=== PATIENT | male | born 1965 | race African-American/Black ===

== ENCOUNTER 2016-12-27 15:29 | Inpatient (IN) | payer OTHER ==
[2016-12-27 20:15] VITALS: BMI 22.5
[2016-12-27] MEDS ORDERED: hydrOXYzine PAMOATE 50 MG CAPSULE (FP) PO PRN (20:53)
[2016-12-27] MEDS ORDERED: MAGNESIUM CITRATE 300 ML BOTTLE PO PRN (20:53)
[2016-12-27] MEDS ORDERED: guaiFENesin/D-METHORPHAN HB 10 ML UNIT-DOSE CUPS PO PRN (20:53)
[2016-12-27] MEDS ORDERED: IBUPROFEN 400 MG TABLET (FP) PO PRN (20:53)
[2016-12-27] MEDS ORDERED: MAG HYDROX/AL HYDROX/SIMETH 30 ML UNIT-DOSE CUP PO PRN (20:53)
[2016-12-27] MEDS ORDERED: LOPERAMIDE HCL 2 MG CAPSULE PO PRN (20:53)
[2016-12-27] MEDS ORDERED: NICOTINE POLACRILEX 2 MG GUM BC PRN (20:53)
[2016-12-27] MEDS ORDERED: chlordiazePOXIDE HCL 25 MG CAPSULE PO ONE (20:53)
[2016-12-27] MEDS ORDERED: MAGNESIUM HYDROX 2400MG/30ML ORAL SUSPENSION 30 ML CUP PO PRN (20:53)
[2016-12-27] MEDS ORDERED: ACETAMINOPHEN 325 MG TABLET (FP) PO PRN (20:53)
[2016-12-27] MEDS ORDERED: P-EPHED 60MG/TRIPROLIDI 2.5MG TABLET PO PRN (20:53)
[2016-12-27] MEDS ORDERED: MENTHOL/PHENOL 1 EACH UD MM PRN (20:53)
[2016-12-27] MEDS ORDERED: chlordiazePOXIDE HCL 25 MG CAPSULE PO PRN (20:53)
--- NOTE | 2016-12-27 20:53 | HP ---
CIWA Score - CIWA Score Nausea/Vomitin-Mild Nausea/No Vomiting Muscle Tremors: 4-Moderate,w/Arms Extend Anxiety: 4-Mod. Anxious/Guarded Agitation: 4-Moderately Restless Paroxysmal Sweats: 1-Minimal Palms Moist Orientation: 1-Uncertain about Date Tacttile Disturbances: 0-None Auditory Disturbances: 0-None Visual Disturbances: 0-None Headache: 0-None Present CIWA-Ar Total Score: 15 Admission ROS BHS - HPI Chief Complaint: withdrawal sx Allergies/Adverse Reactions: Allergies Allergy/AdvReac Type Severity Reaction Status Date / Time No Known Drug Allergies Allergy Unknown Verified 03/23/13 16:58 History of Present Illness: 51 years old male with long history of alcohol nicotine dependence has positive ppd and depression is admitted to detox Exam Limitations: No Limitations - Ebola screening Have you traveled outside of the country in the last 21 days: No Have you had contact with anyone from an Ebola affected area: No Have you been sick,other than usual withdrawal symptoms: No Do you have a fever: No - Review of Systems Constitutional: Changes in sleep, Weight Stable EENT: reports: Blurred Vision (eye glasses) Respiratory: reports: No Symptoms reported Cardiac: reports: No Symptoms Reported GI: reports: Nausea, Poor Fluid Intake, Abdominal cramping : reports: No Symptoms Reported Musculoskeletal: reports: No Symptoms Reported Integumentary: reports: No Symptoms Reported Neuro: reports: Tremors Endocrine: reports: No Symptoms Reported Hematology: reports: No Symptoms Reported Psychiatric: reports: Judgement Intact, Anxious, Depressed Other Systems: Reviewed and Negative Patient History - Patient Medical History Hx Anemia: No Hx Asthma: No Hx Chronic Obstructive Pulmonary Disease (COPD): No Hx Cancer: No Hx Cardiac Disorders: No Hx Congestive Heart Failure: No Hx Hypertension: No Hx Hypercholesterolemia: No Hx Pacemaker: No HX Cerebrovascular Accident: No Hx Seizures: No (BLACKOUT) Hx Dementia: No Hx Diabetes: No Hx Gastrointestinal Disorders: No Hx Liver Disease: No Hx Genitourinary Disorders: No Hx Sexually Transmitted Disorders: No Hx Renal Disease (ESRD): No Hx Thyroid Disease: No Hx Human Immunodeficiency Virus (HIV): No Hx Hepatitis C: No Hx Depression: Yes Hx Suicide Attempt: No Hx Bipolar Disorder: No Hx Schizophrenia: No - Patient Surgical History Past Surgical History: No Hx Neurologic Surgery: No Hx Cataract Extraction: No Hx Cardiac Surgery: No Hx Lung Surgery: No Hx Breast Surgery: No Hx Breast Biopsy: No Hx Abdominal Surgery: No Hx Appendectomy: No Hx Cholecystectomy: No Hx Genitourinary Surgery: No Hx Orthopedic Surgery: No - PPD History Previous Implant?: Yes Documented Results: Positive w/o proof Implanted On Prior [facility] Admission?: No PPD to be Administered?: No - Smoking Cessation Smoking history: Current every day smoker Have you smoked in the past 12 months: Yes Aproximately how many cigarettes per day: 6 Cigars Per Day: 0 Hx Chewing Tobacco Use: No Initiated information on smoking cessation: Yes 'Breaking Loose' booklet given: 12/27/16 - Substance & Tx. History Hx Alcohol Use: Yes Hx Substance Use: No Substance Use Type: Alcohol Hx Substance Use Treatment: Yes (2012 [facility] - Substances Abused Alcohol Route: Oral Frequency: Daily Amount used: 1.5 pint volka Age of first use: 18 Date of Last Use: 12/27/16 Family Disease History - Family Disease History Family Disease History: Diabetes: Grandparent, Heart Disease: Father (/ stroke), CA: Mother ( FROM BONE CANCER), Other: Father, Mother Admission Physical Exam [facility] - Vital Signs Vital Signs: Vital Signs - 24 hr 12/27/16 20:13 Temperature 97.2 F L Pulse Rate 105 H Respiratory 20 Rate Blood Pressure 124/62 - Physical General Appearance: Yes: Appropriately Dressed, Mild Distress, Alcohol on Breath , Thin, Tremorous, Irritable, Sweating, Anxious HEENTM: Yes: Hearing grossly Normal, Normal ENT Inspection, Normocephalic, Normal Voice Respiratory: Yes: Chest Non-Tender, Lungs Clear, Normal Breath Sounds, No Respiratory Distress, No Accessory Muscle Use Neck: Yes: Supple, Trachea in good position Breast: Yes: Breasts Symetrical Cardiology: Yes: Regular Rhythm, S1, S2, Tachycardia Abdominal: Yes: Normal Bowel Sounds, Non Tender, Soft Genitourinary: Yes: Within Normal Limits Back: Yes: Normal Inspection Musculoskeletal: Yes: full range of Motion, Gait Steady Extremities: Yes: Normal Inspection, Normal Range of Motion, Non-Tender, Tremors Neurological: Yes: Alert, Motor Strength 5/5, Normal Response, Depressed Affect Integumentary: Yes: Warm Lymphatic: Yes: Within Normal Limits Cleared for Admission [facility] - Detox or Rehab [facility] Level of Care: Medically Managed Detox Regimen/Protocol: [facility] Breath Alcohol Content Breath Alcohol Content: 0.279 Urine Drug Screen - Results Drug Screen Negative: No Urine Drug Screen Results: BZO-Benzodiazepines, TCA-Tricyclic Antidepress
[2016-12-27] MEDS: chlordiazePOXIDE HCL 25 MG CAPSULE PO SCH (23:07)
[2016-12-27] MEDS: diphenhydrAMINE HCL 50 MG CAPSULE PO PRN (23:07)
[2016-12-27] MEDS: THIAMINE HCL 100 MG TABLET (FP) PO SCH (23:07)
[2016-12-28 00:46] LABS: URINE APPEARANCE SLCLOUDY; URINE BILIRUBIN NEGATIVE (NEGATIVE); URINE BLOOD NEGATIVE (NEGATIVE); URINE COLOR YELLOW; URINE GLUCOSE (UA) NEGATIVE (NEGATIVE); URINE KETONE TRACE (NEGATIVE); URINE LEUK ESTERASE NEGATIVE (NEGATIVE); URINE NITRITE NEGATIVE (NEGATIVE); URINE PROTEIN NEGATIVE (NEGATIVE); URINE UROBILINOGEN NEGATIVE mg/dL (0.2-1.0)
[2016-12-28] MEDS: chlordiazePOXIDE HCL 25 MG CAPSULE PO SCH ×4 (05:25→22:12)
[2016-12-28 09:40] LABS: MCH 29.3 pg (25.7-33.7); MCHC 32.4 g/dl (32.0-35.9); MEAN CELL VOLUME 90.2 fl (80-96); MEAN PLT VOLUME 8.6 fl (7.5-11.1); PLATELET COUNT 215 K/MM3 (134-434); RDW 14.7 % (11.9-15.9); WHITE BLOOD COUNT 4.5 K/mm3 (4.0-10.0)
[2016-12-28 10:10] LABS: ALBUMIN 3.5 g/dl (3.4-5.0); ALK PHOS 62 U/L (45-117); ANION GAP 8 (8-16); BILIRUBIN,TOTAL 0.2 mg/dL (0.2-1.0); CALCIUM 8.9 mg/dL (8.5-10.1); CO2 28 mmol/L (21-32); CREATININE 0.8 mg/dL (0.7-1.3); GLUCOSE,RANDOM 79 mg/dL (74-106); SGOT/AST 35 U/L (15-37); SGPT/ALT 40 U/L (12-78); TOT PROT 6.2 g/dl (6.4-8.2)
--- NOTE | 2016-12-28 10:25 | EKG ---
Test Reason : Blood Pressure : / mmHG Vent. Rate : 092 BPM Atrial Rate : 092 BPM P-R Int : 122 ms QRS Dur : 088 ms QT Int : 360 ms P-R-T Axes : 074 074 072 degrees QTc Int : 445 ms NORMAL SINUS RHYTHM NONSPECIFIC T WAVE ABNORMALITY ABNORMAL ECG NO PREVIOUS ECGS AVAILABLE Confirmed by SANJAY ARIAS MD ([id number]) on 12/28/2016 10:24:48 AM Referred By: Confirmed By:SANJAY ARIAS MD
[2016-12-28] MEDS: NICOTINE 14 MG/24 HOURS TOPICAL PATCH TD SCH (10:36)
[2016-12-28] MEDS: PRENATAL VITAMINS W/ FOLIC ACID TABLET (FP) PO SCH (10:36)
--- NOTE | 2016-12-28 12:28 | PN ---
S CIWA - CIWA Score Nausea/Vomitin-No Nausea/No Vomiting Muscle Tremors: 4-Moderate,w/Arms Extend Anxiety: 4-Mod. Anxious/Guarded Agitation: 4-Moderately Restless Paroxysmal Sweats: 1-Minimal Palms Moist Orientation: 0-Oriented Tacttile Disturbances: 3-Moderate Itch/Numb/Burn Auditory Disturbances: 0-None Visual Disturbances: 0-None Headache: 0-None Present CIWA-Ar Total Score: 16 BHS Progress Note (SOAP) Subjective: ANXIETY,SWEATS,TREMORS,SWEATS. Objective: 12/28/16 12:27 Vital Signs Temperature 97.5 F L 12/28/16 10:00 Pulse Rate 78 12/28/16 10:00 Respiratory Rate 20 12/28/16 10:00 Blood Pressure 125/79 12/28/16 10:00 O2 Sat by Pulse Oximetry (%) Laboratory Tests 12/27/16 12/28/16 12/28/16 23:55 07:00 07:00 WBC 4.5 RBC 3.63 L Hgb 10.6 L D Hct 32.7 L D MCV 90.2 MCH 29.3 MCHC 32.4 RDW 14.7 Plt Count 215 MPV 8.6 Sodium 143 Potassium 3.9 Chloride 107 Carbon Dioxide 28 Anion Gap 8 BUN 14 D Creatinine 0.8 Creat Clearance w eGFR > 60 Random Glucose 79 D Calcium 8.9 Total Bilirubin 0.2 D AST 35 D ALT 40 D Alkaline Phosphatase 62 Total Protein 6.2 L Albumin 3.5 Urine Color Yellow Urine Appearance Slcloudy Urine pH 5.0 D Ur Specific [place] 1.025 Urine Protein Negative Urine Glucose (UA) Negative Urine Ketones Trace H Urine Blood Negative Urine Nitrite Negative Urine Bilirubin Negative Urine Urobilinogen Negative RPR Titer 12/28/16 07:00 WBC RBC Hgb Hct MCV MCH MCHC RDW Plt Count MPV Sodium Potassium Chloride Carbon Dioxide Anion Gap BUN Creatinine Creat Clearance w eGFR Random Glucose Calcium Total Bilirubin AST ALT Alkaline Phosphatase Total Protein Albumin Urine Color Urine Appearance Urine pH Ur Specific [place] Urine Protein Urine Glucose (UA) Urine Ketones Urine Blood Urine Nitrite Urine Bilirubin Urine Urobilinogen RPR Titer Nonreactive Assessment: 12/28/16 12:28 WITHDRAWAL SX Plan: CONTINUE DETOX
--- NOTE | 2016-12-28 14:10 | CONSULT ---
[facility] Psychiatric Consult - Data Date of interview: 12/28/16 Admission source: [facility] Identifying data: Readmission to [facility] for this 51 y/o AA male seeking detox treatment on for alcohol dependence.Patient is ,a father of one,homeless (penitentiary),unemployed and supported on Public Assistance. Substance Abuse History: Discussed with patient in this session. Smoking Cessation. Smoking history: Current every day smoker. Have you smoked in the past 12 months: Yes. Aproximately how many cigarettes per day: 6. Cigars Per Day: 0. Hx Chewing Tobacco Use: No. Initiated information on smoking cessation : Yes. 'Breaking Loose' booklet given: 12/27/16. - Substance & Tx. History. Hx Alcohol Use: Yes. Hx Substance Use: No. Substance Use Type: Alcohol. Hx Substance Use Treatment: Yes (2012). - Substances Abused. Alcohol. Route: Oral. Frequency: Daily. Amount used: 1.5 pint volka. Age of first use: 18. Date of Last Use: 12/27/16 Medical History: Gout. Psychiatric History: Patient denies. Physical/Sexual Abuse/Trauma History: No reported history of abuse. Additional Comment: Urine Drug Screen Results: BZO-Benzodiazepines, TCA- Tricyclic Antidepressant.Noted. Mental Status Exam - Mental Status Exam Alert and Oriented to: Time, Place, Person Cognitive Function: Good Patient Appearance: Well Groomed Mood: Hopeful, Euthymic Affect: Appropriate, Normal Range Patient Behavior: Appropriate, Cooperative Speech Pattern: Clear, Appropriate Voice Loudness: Normal Thought Process: Intact, Goal Oriented Thought Disorder: Not Present Hallucinations: Denies Suicidal Ideation: Denies Homicidal Ideation: Denies Insight/Judgement: Poor Sleep: Poorly, Difficulty falling asleep (wants benadryl) Appetite: Good Muscle strength/Tone: Normal Gait/Station: Normal Psychiatric Findings - Problem List ([place] 1, 2,3) (1) Alcohol dependence with uncomplicated withdrawal Current Visit: Yes Status: Acute (2) Nicotine dependence Current Visit: Yes Status: Acute Qualifiers: Nicotine product type: cigarettes Substance use status: in withdrawal Qualified Code(s): F17.213 - Nicotine dependence, cigarettes, with withdrawal (3) Gout Current Visit: Yes Status: Chronic (4) Insomnia Current Visit: Yes Status: Acute - Initial Treatment Plan Initial Treatment Plan: Psychoeducation.Detoxification.Insomnia is addressed with benadryl 50 mg po hs prn.Side effects/benefits discussed with patient.He agrees with this careplan.Observation.
[2016-12-28] MEDS: THIAMINE HCL 100 MG TABLET (FP) PO SCH (22:12)
[2016-12-28] MEDS: diphenhydrAMINE HCL 50 MG CAPSULE PO PRN (22:13)
[2016-12-29] MEDS: chlordiazePOXIDE HCL 25 MG CAPSULE PO SCH ×3 (05:12→17:48)
[2016-12-29] MEDS: PRENATAL VITAMINS W/ FOLIC ACID TABLET (FP) PO SCH (10:34)
[2016-12-29] MEDS: NICOTINE 14 MG/24 HOURS TOPICAL PATCH TD SCH (10:35)
[2016-12-29] MEDS ORDERED: ONDANSETRON *ODT* 4 MG TABLET SL PRN (11:21)
--- NOTE | 2016-12-29 11:21 | PN ---
[facility] CIWA - CIWA Score Nausea/Vomitin-No Nausea/No Vomiting Muscle Tremors: 4-Moderate,w/Arms Extend Anxiety: 4-Mod. Anxious/Guarded Agitation: 4-Moderately Restless Paroxysmal Sweats: 1-Minimal Palms Moist Orientation: 0-Oriented Tacttile Disturbances: 3-Moderate Itch/Numb/Burn Auditory Disturbances: 0-None Visual Disturbances: 0-None Headache: 0-None Present CIWA-Ar Total Score: 16 BHS Progress Note (SOAP) Subjective: ANXIETY, TREMORS,NAUSEA. Objective: 12/29/16 11:20 Vital Signs Temperature 97.5 F L 12/29/16 10:00 Pulse Rate 81 12/29/16 10:00 Respiratory Rate 18 12/29/16 10:00 Blood Pressure 138/91 12/29/16 10:00 O2 Sat by Pulse Oximetry (%) Laboratory Last Values WBC 4.5 K/mm3 (4.0-10.0) 12/28/16 07:00 RBC 3.63 M/mm3 (4.00-5.60) L 12/28/16 07:00 Hgb 10.6 GM/dL (11.7-16.9) L D 12/28/16 07:00 Hct 32.7 % (35.4-49) L D 12/28/16 07:00 MCV 90.2 fl (80-96) 12/28/16 07:00 MCH 29.3 pg (25.7-33.7) 12/28/16 07:00 MCHC 32.4 g/dl (32.0-35.9) 12/28/16 07:00 RDW 14.7 % (11.9-15.9) 12/28/16 07:00 Plt Count 215 K/MM3 (134-434) 12/28/16 07:00 MPV 8.6 fl (7.5-11.1) 12/28/16 07:00 Sodium 143 mmol/L (136-145) 12/28/16 07:00 Potassium 3.9 mmol/L (3.5-5.1) 12/28/16 07:00 Chloride 107 mmol/L (98-107) 12/28/16 07:00 Carbon Dioxide 28 mmol/L (21-32) 12/28/16 07:00 Anion Gap 8 (8-16) 12/28/16 07:00 BUN 14 mg/dL (7-18) D 12/28/16 07:00 Creatinine 0.8 mg/dL (0.7-1.3) 12/28/16 07:00 Creat Clearance w eGFR > 60 (>60) 12/28/16 07:00 Random Glucose 79 mg/dL (74-106) D 12/28/16 07:00 Calcium 8.9 mg/dL (8.5-10.1) 12/28/16 07:00 Total Bilirubin 0.2 mg/dL (0.2-1.0) D 12/28/16 07:00 AST 35 U/L (15-37) D 12/28/16 07:00 ALT 40 U/L (12-78) D 12/28/16 07:00 Alkaline Phosphatase 62 U/L (45-117) 12/28/16 07:00 Total Protein 6.2 g/dl (6.4-8.2) L 12/28/16 07:00 Albumin 3.5 g/dl (3.4-5.0) 12/28/16 07:00 Urine Color Yellow 12/27/16 23:55 Urine Appearance Slcloudy 12/27/16 23:55 Urine pH 5.0 (5.0-8.0) D 12/27/16 23:55 Ur Specific [place] 1.025 (1.005-1.025) 12/27/16 23:55 Urine Protein Negative (NEGATIVE) 12/27/16 23:55 Urine Glucose (UA) Negative (NEGATIVE) 12/27/16 23:55 Urine Ketones Trace (NEGATIVE) H 12/27/16 23:55 Urine Blood Negative (NEGATIVE) 12/27/16 23:55 Urine Nitrite Negative (NEGATIVE) 12/27/16 23:55 Urine Bilirubin Negative (NEGATIVE) 12/27/16 23:55 Urine Urobilinogen Negative mg/dL (0.2-1.0) 12/27/16 23:55 RPR Titer Nonreactive (NONREACTIVE) 12/28/16 07:00 Hepatitis C Antibody <0.1 s/co ratio (0.0-0.9) 12/27/16 07:00 Assessment: 12/29/16 11:20 WITHDRAWAL SX Plan: CONTINUE DETOX ZOFRAN PRN DIRECTED.
[2016-12-29] MEDS: chlordiazePOXIDE 5 MG CAPSULE PO SCH (22:24)
[2016-12-29] MEDS: THIAMINE HCL 100 MG TABLET (FP) PO SCH (22:24)
[2016-12-29] MEDS: diphenhydrAMINE HCL 50 MG CAPSULE PO PRN (22:25)
[2016-12-30] MEDS: chlordiazePOXIDE 5 MG CAPSULE PO SCH ×3 (05:36→17:07)
[2016-12-30] MEDS: NICOTINE 14 MG/24 HOURS TOPICAL PATCH TD SCH (10:43)
[2016-12-30] MEDS: PRENATAL VITAMINS W/ FOLIC ACID TABLET (FP) PO SCH (10:43)
--- NOTE | 2016-12-30 14:20 | PN ---
BHS Progress Note (SOAP) Subjective: Sweating,interrupted sleep,restless Objective: 12/30/16 14:18 Vital Signs - 8 hr 12/30/16 12/30/16 06:24 11:11 Temperature 97.1 F L 97.7 F Pulse Rate 80 98 H Respiratory 18 20 Rate Blood Pressure 127/84 130/84 Laboratory Tests 12/27/16 12/27/16 12/28/16 07:00 23:55 07:00 WBC 4.5 RBC 3.63 L Hgb 10.6 L D Hct 32.7 L D MCV 90.2 MCH 29.3 MCHC 32.4 RDW 14.7 Plt Count 215 MPV 8.6 Sodium Potassium Chloride Carbon Dioxide Anion Gap BUN Creatinine Creat Clearance w eGFR Random Glucose Calcium Total Bilirubin AST ALT Alkaline Phosphatase Total Protein Albumin Urine Color Yellow Urine Appearance Slcloudy Urine pH 5.0 D Ur Specific [place] 1.025 Urine Protein Negative Urine Glucose (UA) Negative Urine Ketones Trace H Urine Blood Negative Urine Nitrite Negative Urine Bilirubin Negative Urine Urobilinogen Negative RPR Titer Hepatitis C Antibody <0.1 12/28/16 12/28/16 07:00 07:00 WBC RBC Hgb Hct MCV MCH MCHC RDW Plt Count MPV Sodium 143 Potassium 3.9 Chloride 107 Carbon Dioxide 28 Anion Gap 8 BUN 14 D Creatinine 0.8 Creat Clearance w eGFR > 60 Random Glucose 79 D Calcium 8.9 Total Bilirubin 0.2 D AST 35 D ALT 40 D Alkaline Phosphatase 62 Total Protein 6.2 L Albumin 3.5 Urine Color Urine Appearance Urine pH Ur Specific [place] Urine Protein Urine Glucose (UA) Urine Ketones Urine Blood Urine Nitrite Urine Bilirubin Urine Urobilinogen RPR Titer Nonreactive Hepatitis C Antibody labs noted Assessment: 12/30/16 14:19 Withdrawal sx. Plan: Continue detox
[2016-12-30] MEDS: THIAMINE HCL 100 MG TABLET (FP) PO SCH (22:13)
[2016-12-30] MEDS: diphenhydrAMINE HCL 50 MG CAPSULE PO PRN (22:13)
[2016-12-30] MEDS: chlordiazePOXIDE HCL 10 MG CAPSULE PO SCH (22:13)
[2016-12-31] MEDS: chlordiazePOXIDE HCL 10 MG CAPSULE PO SCH (06:19)
[2016-12-31 06:36] VITALS: BP 123/83; PULSE 85; TEMP 97.4
--- NOTE | 2016-12-31 20:19 | DS ---
[facility] Detox Discharge Summary Admission Date: 12/27/16 Discharge Date: 12/31/16 - History Present History: Alcohol Dependence Additional Comments: PT. ADVISED TO FOLLOW-UP WITH OUTPATIENT 12-STEP / AA SUPPORT GROUP PROGRAM FOR AFTER CARE. PATIENT WAS DISCHARGED FROM DETOX UNIT IN STABLE MEDICAL CONDITION. Pertinent Past History: Insomnia, Gout, Depression. - Physical Exam Results Vital Signs: Vital Signs Temperature 97.4 F L 12/31/16 06:36 Pulse Rate 85 12/31/16 06:36 Respiratory Rate 18 12/31/16 06:36 Blood Pressure 123/83 12/31/16 06:36 O2 Sat by Pulse Oximetry (%) Pertinent Admission Physical Exam Findings: WITHDRAWAL SYMPTOMS. Laboratory Tests 12/27/16 12/27/16 12/28/16 07:00 23:55 07:00 WBC 4.5 RBC 3.63 L Hgb 10.6 L D Hct 32.7 L D MCV 90.2 MCH 29.3 MCHC 32.4 RDW 14.7 Plt Count 215 MPV 8.6 Sodium Potassium Chloride Carbon Dioxide Anion Gap BUN Creatinine Creat Clearance w eGFR Random Glucose Calcium Total Bilirubin AST ALT Alkaline Phosphatase Total Protein Albumin Urine Color Yellow Urine Appearance Slcloudy Urine pH 5.0 D Ur Specific [place] 1.025 Urine Protein Negative Urine Glucose (UA) Negative Urine Ketones Trace H Urine Blood Negative Urine Nitrite Negative Urine Bilirubin Negative Urine Urobilinogen Negative RPR Titer Hepatitis C Antibody <0.1 12/28/16 12/28/16 07:00 07:00 WBC RBC Hgb Hct MCV MCH MCHC RDW Plt Count MPV Sodium 143 Potassium 3.9 Chloride 107 Carbon Dioxide 28 Anion Gap 8 BUN 14 D Creatinine 0.8 Creat Clearance w eGFR > 60 Random Glucose 79 D Calcium 8.9 Total Bilirubin 0.2 D AST 35 D ALT 40 D Alkaline Phosphatase 62 Total Protein 6.2 L Albumin 3.5 Urine Color Urine Appearance Urine pH Ur Specific [place] Urine Protein Urine Glucose (UA) Urine Ketones Urine Blood Urine Nitrite Urine Bilirubin Urine Urobilinogen RPR Titer Nonreactive Hepatitis C Antibody LABS NOTED. - Treatment Hospital Course: Detox Protocol Followed, Detoxed Safely, Responded well, Discharged Condition Good Patient has Accepted a Rehab Referral to: NO. PT. ADVISED TO FOLLOW-UP WITH LOCAL 12-STEP/NA OUTPATIENT SUPPORT GROUP - Medication Discharge Medications: Ambulatory Orders NK [No Known Home Medication] 12/27/16 - Diagnosis (1) Alcohol dependence with uncomplicated withdrawal Status: Acute (2) Depression (emotion) Status: Acute (3) Insomnia Status: Acute (4) Nicotine dependence Status: Acute Qualifiers: Nicotine product type: cigarettes Substance use status: in withdrawal Qualified Code(s): F17.213 - Nicotine dependence, cigarettes, with withdrawal (5) Gout Status: Chronic - AMA Did Patient Leave Against Medical Advice: No
== END 2016-12-31 07:12 | disposition home or self-care (01) | DRG 775 ==
LOC: YASAS 15:29 → Y3N 22:01
PROVIDERS: ADMIT Internal Medicine; ATTEND Internal Medicine
PROC: HZ2ZZZZ Detoxification Services for Substance Abuse Treatment (ICD-10-PCS; principal; 2016-12-27)
DX: F10.230 Alcohol dependence with withdrawal, uncomplicated (principal); F17.210 Nicotine dependence, cigarettes, uncomplicated; F34.1 Dysthymic disorder; G47.00 Insomnia, unspecified; M10.9 Gout, unspecified
CPT/HCPCS: 36415; 80053; 81003; 85027; 86593; 86803; 93005; 93010

== ENCOUNTER 2017-08-21 12:34 | Inpatient (IN) | payer OTHER ==
[2017-08-21 13:44] VITALS: BMI 23.1
--- NOTE | 2017-08-21 16:52 | HP ---
CIWA Score - CIWA Score Nausea/Vomitin-No Nausea/No Vomiting Muscle Tremors: 2 Anxiety: 2 Agitation: 2 Paroxysmal Sweats: 1-Minimal Palms Moist Orientation: 0-Oriented Tacttile Disturbances: 0-None Auditory Disturbances: 2-Mild Harshness/Frighten Visual Disturbances: 0-None Headache: 3-Moderate CIWA-Ar Total Score: 12 Admission ROS BHS - HPI Chief Complaint: I am here for detox Allergies/Adverse Reactions: Allergies Allergy/AdvReac Type Severity Reaction Status Date / Time tomato Allergy Intermediate Hives Verified 08/21/17 16:36 No Known Drug Allergies Allergy Unknown Verified 12/27/16 21:47 History of Present Illness: 52 yo male with hx of nicotine and alcohol dependence is here seeking detox. PMHX: +PPD, and insomnia. Denies suicidal / homicidal ideation or suicide attempts. Last detox [facility] 12/27/17 -12/31/17, Longest period of sobriety 8 years. Exam Limitations: No Limitations - Ebola screening Have you traveled outside of the country in the last 21 days: No (N) Have you had contact with anyone from an Ebola affected area: No Have you been sick,other than usual withdrawal symptoms: No Do you have a fever: No - Review of Systems Constitutional: Changes in sleep EENT: reports: No Symptoms Reported Respiratory: reports: No Symptoms reported Cardiac: reports: No Symptoms Reported GI: reports: Poor Fluid Intake : reports: No Symptoms Reported Musculoskeletal: reports: No Symptoms Reported Neuro: reports: Headache (rates heache 7/10), Dizziness Endocrine: reports: Increased Thirst Hematology: reports: No Symptoms Reported Psychiatric: reports: Mood/Affect Appropiate, Orientated x3 Other Systems: Reviewed and Negative Patient History - Patient Medical History Hx Anemia: No Hx Asthma: No Hx Chronic Obstructive Pulmonary Disease (COPD): No Hx Cancer: No Hx Cardiac Disorders: No Hx Congestive Heart Failure: No Hx Hypertension: No Hx Hypercholesterolemia: No Hx Pacemaker: No HX Cerebrovascular Accident: No Hx Seizures: No Hx Dementia: No Hx Diabetes: No Hx Gastrointestinal Disorders: No Hx Liver Disease: No Hx Genitourinary Disorders: No Hx Sexually Transmitted Disorders: No Hx Renal Disease (ESRD): No Hx Thyroid Disease: No Hx Human Immunodeficiency Virus (HIV): No (last tested 1 month ago ) Hx Hepatitis C: No Hx Depression: No Hx Suicide Attempt: No Hx Bipolar Disorder: No Hx Schizophrenia: No - Patient Surgical History Past Surgical History: No Hx Neurologic Surgery: No Hx Cataract Extraction: No Hx Cardiac Surgery: No Hx Lung Surgery: No Hx Breast Surgery: No Hx Breast Biopsy: No Hx Abdominal Surgery: No Hx Appendectomy: No Hx Cholecystectomy: No Hx Genitourinary Surgery: No Hx Section: No Hx Orthopedic Surgery: No Anesthesia Reaction: No - PPD History Previous Implant?: Yes Documented Results: Positive w/o proof Implanted On Prior [facility] Admission?: No Date: 02/23/13 PPD to be Administered?: No - Reproductive History Patient is a Female of Child Bearing Age (11 -55 yrs old): No - Smoking Cessation Smoking history: Current every day smoker Have you smoked in the past 12 months: Yes Aproximately how many cigarettes per day: 4 Cigars Per Day: 0 Hx Chewing Tobacco Use: No Initiated information on smoking cessation: Yes 'Breaking Loose' booklet given: 08/21/17 - Substance & Tx. History Hx Alcohol Use: Yes Hx Substance Use: Yes Substance Use Type: Alcohol Hx Substance Use Treatment: Yes ([facility] 12/27/16 - 12/31/16) - Substances Abused Alcohol Route: Oral Frequency: Daily Amount used: 2 pints vodka Age of first use: 15 Date of Last Use: 08/21/17 Family Disease History - Family Disease History Family Disease History: Diabetes: Grandparent, Heart Disease: Father (/ stroke), CA: Mother ( FROM BONE CANCER), Other: Father, Mother Admission Physical Exam BHS - Vital Signs Vital Signs: Vital Signs - 24 hr 08/21/17 13:43 Temperature 98.1 F Pulse Rate 81 Respiratory 18 Rate Blood Pressure 139/70 - Physical General Appearance: Yes: Disheveled, Thin, Anxious HEENTM: Yes: EOMI, Hearing grossly Normal, Normal ENT Inspection, Normocephalic , Normal Voice, WALTER, Pharynx Normal, Tm's normal Respiratory: Yes: Chest Non-Tender, Lungs Clear, Normal Breath Sounds, No Respiratory Distress, No Accessory Muscle Use Neck: Yes: No masses,lesions,Nodules, Trachea in good position Breast: Yes: Breast Exam Deferred Cardiology: Yes: Regular Rhythm, Regular Rate Abdominal: Yes: Normal Bowel Sounds, Non Tender, Flat, Soft Genitourinary: Yes: Within Normal Limits Back: Yes: Normal Inspection Musculoskeletal: Yes: full range of Motion, Gait Steady, Pelvis Stable Extremities: Yes: Normal Capillary Refill, Normal Inspection, Normal Range of Motion, Non-Tender Neurological: Yes: diesel technician II-XII NML intact, Fully Oriented, Alert, Motor Strength 5/5 Integumentary: Yes: Normal Color, Warm, Moist Lymphatic: Yes: Within Normal Limits - Diagnostic (1) Alcohol dependence with uncomplicated withdrawal Current Visit: Yes Status: Acute (2) Insomnia Current Visit: Yes Status: Acute Qualifiers: Insomnia type: unspecified Qualified Code(s): G47.00 - Insomnia, unspecified (3) Nicotine dependence Current Visit: Yes Status: Acute Qualifiers: Nicotine product type: cigarettes (4) Positive PPD, treated Current Visit: Yes Status: Chronic Cleared for Admission [facility] - Detox or Rehab [facility] Level of Care: Medically Managed Detox Regimen/Protocol: Librium [facility] Breath Alcohol Content Breath Alcohol Content: 0.081 Urine Drug Screen - Results Drug Screen Negative: No Urine Drug Screen Results: BZO-Benzodiazepines, TCA-Tricyclic Antidepress
[2017-08-21] MEDS ORDERED: MAGNESIUM HYDROX 2400MG/30ML ORAL SUSPENSION 30 ML CUP PO PRN (16:54)
[2017-08-21] MEDS ORDERED: chlordiazePOXIDE HCL 25 MG CAPSULE PO PRN (16:54)
[2017-08-21] MEDS ORDERED: MAGNESIUM CITRATE 300 ML BOTTLE PO PRN (16:54)
[2017-08-21] MEDS ORDERED: MENTHOL/PHENOL 1 EACH UD MM PRN (16:54)
[2017-08-21] MEDS ORDERED: P-EPHED 60MG/TRIPROLIDI 2.5MG TABLET PO PRN (16:54)
[2017-08-21] MEDS ORDERED: MAG HYDROX/AL HYDROX/SIMETH 30 ML UNIT-DOSE CUP PO PRN (16:54)
[2017-08-21] MEDS ORDERED: ACETAMINOPHEN 325 MG TABLET (FP) PO PRN (16:54)
[2017-08-21] MEDS ORDERED: hydrOXYzine PAMOATE 50 MG CAPSULE (FP) PO PRN (16:54)
[2017-08-21] MEDS ORDERED: NICOTINE POLACRILEX 2 MG GUM BC PRN (16:54)
[2017-08-21] MEDS ORDERED: LOPERAMIDE HCL 2 MG CAPSULE PO PRN (16:54)
[2017-08-21] MEDS ORDERED: IBUPROFEN 400 MG TABLET (FP) PO PRN (16:54)
[2017-08-21] MEDS ORDERED: guaiFENesin/D-METHORPHAN HB 10 ML UNIT-DOSE CUPS PO PRN (16:54)
[2017-08-21] MEDS ORDERED: chlordiazePOXIDE HCL 25 MG CAPSULE PO ONE (17:45)
[2017-08-21] MEDS ORDERED: MELATONIN 5 MG TABLETS PO PRN (22:00)
[2017-08-21] MEDS: THIAMINE HCL 100 MG TABLET (FP) PO SCH (22:32)
[2017-08-21] MEDS: chlordiazePOXIDE HCL 25 MG CAPSULE PO SCH (22:33)
[2017-08-21 23:18] LABS: URINE APPEARANCE CLEAR; URINE BILIRUBIN NEGATIVE (<2.0 mg/dL); URINE COLOR YELLOW; URINE GLUCOSE (UA) NEGATIVE (NEGATIVE); URINE KETONE 1+ (NEGATIVE); URINE LEUK ESTERASE NEGATIVE (NEGATIVE); URINE NITRITE NEGATIVE (NEGATIVE); URINE PROTEIN NEGATIVE (NEGATIVE); URINE UROBILINOGEN NEGATIVE mg/dL (0.2-1.0)
[2017-08-22] MEDS: chlordiazePOXIDE HCL 25 MG CAPSULE PO SCH ×4 (05:53→22:36)
--- NOTE | 2017-08-22 09:53 | EKG ---
Test Reason : Blood Pressure : / mmHG Vent. Rate : 065 BPM Atrial Rate : 065 BPM P-R Int : 132 ms QRS Dur : 098 ms QT Int : 418 ms P-R-T Axes : 068 075 078 degrees QTc Int : 434 ms NORMAL SINUS RHYTHM MINIMAL VOLTAGE CRITERIA FOR LVH, MAY BE NORMAL VARIANT BORDERLINE ECG Confirmed by MD Radha, Dimitri ([id number]) on 08/22/2017 9:53:21 AM Referred By: Confirmed By:Dimitri Garcia MD
[2017-08-22 09:55] LABS: HEMATOCRIT 34.6 % (35.4-49); HEMOGLOBIN 11.7 GM/dL (11.7-16.9); MCH 31.7 pg (25.7-33.7); MCHC 33.9 g/dl (32.0-35.9); MEAN CELL VOLUME 93.5 fl (80-96); MEAN PLT VOLUME 9.2 fl (7.5-11.1); PLATELET COUNT 336 K/MM3 (134-434); RDW 15.3 % (11.9-15.9); WHITE BLOOD COUNT 5.2 K/mm3 (4.0-10.0)
[2017-08-22 10:06] LABS: CHLORIDE 102 mmol/L (98-107); POTASSIUM 3.7 mmol/L (3.5-5.1); SODIUM 138 mmol/L (136-145)
--- NOTE | 2017-08-22 10:18 | CONSULT ---
[facility] Psychiatric Consult - Data Date of interview: 08/22/17 Admission source: [facility] Identifying data: Patient is a 52 year old domiciled male, , father of one and currently employed. This is one of multiple admissions for patient. Pt. admitted to for alcohol dependence. Substance Abuse History: Following information confirmed with Mr. De Guzman: Smoking Cessation. Smoking history: Current every day smoker. Have you smoked in the past 12 months: Yes. Aproximately how many cigarettes per day: 4. Cigars Per Day: 0. Hx Chewing Tobacco Use: No. Initiated information on smoking cessation: Yes. 'Breaking Loose' booklet given: 08/21/17. - Substance & Tx. History. Hx Alcohol Use: Yes. Hx Substance Use: Yes. Substance Use Type : Alcohol. Hx Substance Use Treatment: Yes ([facility] 12/27/16 - 12/31/16). - Substances Abused. Alcohol. Route: Oral. Frequency: Daily. Amount used: 2 pints vodka. Age of first use: 15. Date of Last Use: 08/21/17 Medical History: Denies. Psychiatric History: Patient denies h/o psychiatric hospitalizations, outpatient care, and suicide attempt. Pt. reports poor sleep. Physical/Sexual Abuse/Trauma History: Denies. Mental Status Exam - Mental Status Exam Alert and Oriented to: Time, Place, Person Cognitive Function: Good Patient Appearance: Well Groomed Mood: Euthymic Affect: Mood Congruent Patient Behavior: Fatigued Speech Pattern: Clear, Appropriate Voice Loudness: Normal Thought Process: Intact, Goal Oriented Thought Disorder: Not Present Hallucinations: Denies Suicidal Ideation: Denies Homicidal Ideation: Denies Insight/Judgement: Poor Sleep: Poorly Appetite: Fair Muscle strength/Tone: Normal Gait/Station: Normal Psychiatric Findings - Problem List ([place] 1, 2,3) (1) Alcohol dependence with uncomplicated withdrawal Current Visit: Yes Status: Acute (2) Insomnia Current Visit: Yes Status: Acute Qualifiers: Insomnia type: unspecified Qualified Code(s): G47.00 - Insomnia, unspecified (3) Nicotine dependence Current Visit: Yes Status: Chronic Qualifiers: Nicotine product type: cigarettes - Initial Treatment Plan Initial Treatment Plan: Psychoeducation provided. Detoxification in progress. Benadryl 50mg qhs ordered for insomnia. Benefits and side effects discussed. Verbal consent given. Will continue to monitor.
[2017-08-22] MEDS: NICOTINE 14 MG/24 HOURS TOPICAL PATCH TD SCH (10:44)
[2017-08-22] MEDS: PRENATAL VITAMINS W/ FOLIC ACID TABLET (FP) PO SCH (10:44)
--- NOTE | 2017-08-22 10:54 | PN ---
S CIWA - CIWA Score Nausea/Vomitin-Mild Nausea/No Vomiting Muscle Tremors: 3 Anxiety: 3 Agitation: 2 Paroxysmal Sweats: 1-Minimal Palms Moist Orientation: 0-Oriented Tacttile Disturbances: 1-Very Mild Itch/Numbness Auditory Disturbances: 0-None Visual Disturbances: 0-None Headache: 0-None Present CIWA-Ar Total Score: 11 BHS Progress Note (SOAP) Subjective: sweat tremor gi distress anxiety restlessness trouble sleep at night Objective: 08/22/17 10:53 Vital Signs Temperature 97.7 F 08/22/17 09:32 Pulse Rate 68 08/22/17 09:32 Respiratory Rate 20 08/22/17 09:32 Blood Pressure 127/73 08/22/17 09:32 O2 Sat by Pulse Oximetry (%) Laboratory Last Values WBC 5.2 K/mm3 (4.0-10.0) 08/22/17 06:00 RBC 3.70 M/mm3 (4.00-5.60) L 08/22/17 06:00 Hgb 11.7 GM/dL (11.7-16.9) D 08/22/17 06:00 Hct 34.6 % (35.4-49) L 08/22/17 06:00 MCV 93.5 fl (80-96) 08/22/17 06:00 MCH 31.7 pg (25.7-33.7) 08/22/17 06:00 MCHC 33.9 g/dl (32.0-35.9) 08/22/17 06:00 RDW 15.3 % (11.9-15.9) 08/22/17 06:00 Plt Count 336 K/MM3 (134-434) D 08/22/17 06:00 MPV 9.2 fl (7.5-11.1) 08/22/17 06:00 Sodium 138 mmol/L (136-145) 08/22/17 06:00 Potassium 3.7 mmol/L (3.5-5.1) 08/22/17 06:00 Chloride 102 mmol/L (98-107) 08/22/17 06:00 Urine Color Yellow 08/21/17 18:17 Urine Appearance Clear 08/21/17 18:17 Urine pH 5.0 (5.0-8.0) 08/21/17 18:17 Ur Specific [place] 1.026 (1.001-1.035) 08/21/17 18:17 Urine Protein Negative (NEGATIVE) 08/21/17 18:17 Urine Glucose (UA) Negative (NEGATIVE) 08/21/17 18:17 Urine Ketones 1+ (NEGATIVE) H 08/21/17 18:17 Urine Blood Negative (NEGATIVE) 08/21/17 18:17 Urine Nitrite Negative (NEGATIVE) 08/21/17 18:17 Urine Bilirubin Negative (<2.0 mg/dL) 08/21/17 18:17 Urine Urobilinogen Negative mg/dL (0.2-1.0) 08/21/17 18:17 Ur Leukocyte Esterase Negative (NEGATIVE) 08/21/17 18:17 lab noted Assessment: 08/22/17 10:54 withdrawal sx Plan: continue detox
[2017-08-22 11:01] LABS: ALBUMIN 4.4 g/dl (3.4-5.0); ALK PHOS 76 U/L (45-117); ANION GAP 10 (8-16); BILIRUBIN,TOTAL 1.2 mg/dL (0.2-1.0); BLOOD UREA NITROGEN 14 mg/dL (7-18); CO2 26 mmol/L (21-32); CREATININE 1.1 mg/dL (0.7-1.3); GLUCOSE,RANDOM 139 mg/dL (74-106); SGOT/AST 41 U/L (15-37); SGPT/ALT 40 U/L (12-78); TOT PROT 7.6 g/dl (6.4-8.2)
[2017-08-22] MEDS: THIAMINE HCL 100 MG TABLET (FP) PO SCH (22:36)
[2017-08-22] MEDS: diphenhydrAMINE HCL 50 MG CAPSULE PO PRN (22:36)
[2017-08-23] MEDS: chlordiazePOXIDE HCL 25 MG CAPSULE PO SCH ×3 (05:45→17:46)
[2017-08-23] MEDS: NICOTINE 14 MG/24 HOURS TOPICAL PATCH TD SCH (10:21)
[2017-08-23] MEDS: PRENATAL VITAMINS W/ FOLIC ACID TABLET (FP) PO SCH (10:21)
--- NOTE | 2017-08-23 11:15 | PN ---
[facility] CIWA - CIWA Score Nausea/Vomitin-No Nausea/No Vomiting Muscle Tremors: 3 Anxiety: 3 Agitation: 3 Paroxysmal Sweats: 1-Minimal Palms Moist Orientation: 0-Oriented Tacttile Disturbances: 0-None Auditory Disturbances: 0-None Visual Disturbances: 0-None Headache: 0-None Present CIWA-Ar Total Score: 10 S Progress Note (SOAP) Subjective: sweat tremor anxiety restlessness Objective: 08/23/17 11:10 Vital Signs Temperature 97.5 F L 08/23/17 09:14 Pulse Rate 75 08/23/17 09:14 Respiratory Rate 18 08/23/17 09:14 Blood Pressure 137/96 08/23/17 09:14 O2 Sat by Pulse Oximetry (%) Laboratory Last Values WBC 5.2 K/mm3 (4.0-10.0) 08/22/17 06:00 RBC 3.70 M/mm3 (4.00-5.60) L 08/22/17 06:00 Hgb 11.7 GM/dL (11.7-16.9) D 08/22/17 06:00 Hct 34.6 % (35.4-49) L 08/22/17 06:00 MCV 93.5 fl (80-96) 08/22/17 06:00 MCH 31.7 pg (25.7-33.7) 08/22/17 06:00 MCHC 33.9 g/dl (32.0-35.9) 08/22/17 06:00 RDW 15.3 % (11.9-15.9) 08/22/17 06:00 Plt Count 336 K/MM3 (134-434) D 08/22/17 06:00 MPV 9.2 fl (7.5-11.1) 08/22/17 06:00 Sodium 138 mmol/L (136-145) 08/22/17 06:00 Potassium 3.7 mmol/L (3.5-5.1) 08/22/17 06:00 Chloride 102 mmol/L (98-107) 08/22/17 06:00 Carbon Dioxide 26 mmol/L (21-32) 08/22/17 06:00 Anion Gap 10 (8-16) 08/22/17 06:00 BUN 14 mg/dL (7-18) 08/22/17 06:00 Creatinine 1.1 mg/dL (0.7-1.3) D 08/22/17 06:00 Creat Clearance w eGFR > 60 (>60) 08/22/17 06:00 Random Glucose 139 mg/dL (74-106) H D 08/22/17 06:00 Calcium 9.0 mg/dL (8.5-10.1) 08/22/17 06:00 Total Bilirubin 1.2 mg/dL (0.2-1.0) H D 08/22/17 06:00 AST 41 U/L (15-37) H 08/22/17 06:00 ALT 40 U/L (12-78) 08/22/17 06:00 Alkaline Phosphatase 76 U/L (45-117) D 08/22/17 06:00 Total Protein 7.6 g/dl (6.4-8.2) D 08/22/17 06:00 Albumin 4.4 g/dl (3.4-5.0) D 08/22/17 06:00 Urine Color Yellow 08/21/17 18:17 Urine Appearance Clear 08/21/17 18:17 Urine pH 5.0 (5.0-8.0) 08/21/17 18:17 Ur Specific [place] 1.026 (1.001-1.035) 08/21/17 18:17 Urine Protein Negative (NEGATIVE) 08/21/17 18:17 Urine Glucose (UA) Negative (NEGATIVE) 08/21/17 18:17 Urine Ketones 1+ (NEGATIVE) H 08/21/17 18:17 Urine Blood Negative (NEGATIVE) 08/21/17 18:17 Urine Nitrite Negative (NEGATIVE) 08/21/17 18:17 Urine Bilirubin Negative (<2.0 mg/dL) 08/21/17 18:17 Urine Urobilinogen Negative mg/dL (0.2-1.0) 08/21/17 18:17 Ur Leukocyte Esterase Negative (NEGATIVE) 08/21/17 18:17 RPR Titer Nonreactive (NONREACTIVE) 08/22/17 06:00 lab noted Assessment: 08/23/17 11:11 withdrawal sx Plan: continue detox
[2017-08-23] MEDS ORDERED: diphenhydrAMINE HCL 25 MG CAPSULE (FP) PO ONE (20:55)
[2017-08-23] MEDS: diphenhydrAMINE HCL 50 MG CAPSULE PO PRN (22:46)
[2017-08-23] MEDS: chlordiazePOXIDE 5 MG CAPSULE PO SCH (22:46)
[2017-08-23] MEDS: THIAMINE HCL 100 MG TABLET (FP) PO SCH (22:46)
[2017-08-24] MEDS: chlordiazePOXIDE 5 MG CAPSULE PO SCH ×3 (07:32→18:00)
[2017-08-24] MEDS: PRENATAL VITAMINS W/ FOLIC ACID TABLET (FP) PO SCH (10:54)
[2017-08-24] MEDS: NICOTINE 14 MG/24 HOURS TOPICAL PATCH TD SCH (10:54)
--- NOTE | 2017-08-24 11:27 | PN ---
BHS Progress Note (SOAP) Subjective: feeling better no tremor less sweat alert social with peers in day room Objective: 08/24/17 11:25 Vital Signs Temperature 97.7 F 08/24/17 09:25 Pulse Rate 66 08/24/17 09:25 Respiratory Rate 18 08/24/17 09:25 Blood Pressure 121/67 08/24/17 09:25 O2 Sat by Pulse Oximetry (%) Laboratory Last Values WBC 5.2 K/mm3 (4.0-10.0) 08/22/17 06:00 RBC 3.70 M/mm3 (4.00-5.60) L 08/22/17 06:00 Hgb 11.7 GM/dL (11.7-16.9) D 08/22/17 06:00 Hct 34.6 % (35.4-49) L 08/22/17 06:00 MCV 93.5 fl (80-96) 08/22/17 06:00 MCH 31.7 pg (25.7-33.7) 08/22/17 06:00 MCHC 33.9 g/dl (32.0-35.9) 08/22/17 06:00 RDW 15.3 % (11.9-15.9) 08/22/17 06:00 Plt Count 336 K/MM3 (134-434) D 08/22/17 06:00 MPV 9.2 fl (7.5-11.1) 08/22/17 06:00 Sodium 138 mmol/L (136-145) 08/22/17 06:00 Potassium 3.7 mmol/L (3.5-5.1) 08/22/17 06:00 Chloride 102 mmol/L (98-107) 08/22/17 06:00 Carbon Dioxide 26 mmol/L (21-32) 08/22/17 06:00 Anion Gap 10 (8-16) 08/22/17 06:00 BUN 14 mg/dL (7-18) 08/22/17 06:00 Creatinine 1.1 mg/dL (0.7-1.3) D 08/22/17 06:00 Creat Clearance w eGFR > 60 (>60) 08/22/17 06:00 Random Glucose 139 mg/dL (74-106) H D 08/22/17 06:00 Calcium 9.0 mg/dL (8.5-10.1) 08/22/17 06:00 Total Bilirubin 1.2 mg/dL (0.2-1.0) H D 08/22/17 06:00 AST 41 U/L (15-37) H 08/22/17 06:00 ALT 40 U/L (12-78) 08/22/17 06:00 Alkaline Phosphatase 76 U/L (45-117) D 08/22/17 06:00 Total Protein 7.6 g/dl (6.4-8.2) D 08/22/17 06:00 Albumin 4.4 g/dl (3.4-5.0) D 08/22/17 06:00 Urine Color Yellow 08/21/17 18:17 Urine Appearance Clear 08/21/17 18:17 Urine pH 5.0 (5.0-8.0) 08/21/17 18:17 Ur Specific [place] 1.026 (1.001-1.035) 08/21/17 18:17 Urine Protein Negative (NEGATIVE) 08/21/17 18:17 Urine Glucose (UA) Negative (NEGATIVE) 08/21/17 18:17 Urine Ketones 1+ (NEGATIVE) H 08/21/17 18:17 Urine Blood Negative (NEGATIVE) 08/21/17 18:17 Urine Nitrite Negative (NEGATIVE) 08/21/17 18:17 Urine Bilirubin Negative (<2.0 mg/dL) 08/21/17 18:17 Urine Urobilinogen Negative mg/dL (0.2-1.0) 08/21/17 18:17 Ur Leukocyte Esterase Negative (NEGATIVE) 08/21/17 18:17 RPR Titer Nonreactive (NONREACTIVE) 08/22/17 06:00 lab noted Assessment: 08/24/17 11:25 mild withdrawal sx Plan: medically supervised detox
[2017-08-24] MEDS: THIAMINE HCL 100 MG TABLET (FP) PO SCH (22:38)
[2017-08-24] MEDS: chlordiazePOXIDE HCL 10 MG CAPSULE PO SCH (22:38)
[2017-08-24] MEDS ORDERED: diphenhydrAMINE HCL 25 MG CAPSULE (FP) PO ONE (22:39)
[2017-08-24] MEDS: diphenhydrAMINE HCL 50 MG CAPSULE PO PRN (22:40)
[2017-08-25] MEDS: chlordiazePOXIDE HCL 10 MG CAPSULE PO SCH (07:42)
[2017-08-25 09:23] VITALS: BP 134/85; PULSE 103; TEMP 97.7
--- NOTE | 2017-08-25 10:27 | DS ---
[facility] Detox Discharge Summary Admission Date: 08/21/17 Discharge Date: 08/25/17 - Physical Exam Results Vital Signs: Vital Signs Temperature 97.7 F 08/25/17 09:22 Pulse Rate 103 H 08/25/17 09:22 Respiratory Rate 18 08/25/17 09:22 Blood Pressure 134/85 08/25/17 09:22 O2 Sat by Pulse Oximetry (%) - Medication Discharge Medications: Ambulatory Orders NK [No Known Home Medication] 12/27/16
--- NOTE | 2017-08-25 10:30 | DS ---
[facility] Detox Discharge Summary Admission Date: 08/21/17 Discharge Date: 08/25/17 - History Present History: Alcohol Dependence Additional Comments: 52 years old male admitted on 08/21/17 for alcohol withdrawal sx completed alcohol detox regimen tolerated well denies alcohol withdrawal sx alert oriented x 3 no acute distress agrees aftercare bring back to life recovery program - Physical Exam Results Vital Signs: Vital Signs Temperature 97.7 F 08/25/17 09:22 Pulse Rate 103 H 08/25/17 09:22 Respiratory Rate 18 08/25/17 09:22 Blood Pressure 134/85 08/25/17 09:22 O2 Sat by Pulse Oximetry (%) Pertinent Admission Physical Exam Findings: withdrawal sx Vital Signs Temperature 97.7 F 08/25/17 09:22 Pulse Rate 103 H 08/25/17 09:22 Respiratory Rate 18 08/25/17 09:22 Blood Pressure 134/85 08/25/17 09:22 O2 Sat by Pulse Oximetry (%) Laboratory Last Values WBC 5.2 K/mm3 (4.0-10.0) 08/22/17 06:00 RBC 3.70 M/mm3 (4.00-5.60) L 08/22/17 06:00 Hgb 11.7 GM/dL (11.7-16.9) D 08/22/17 06:00 Hct 34.6 % (35.4-49) L 08/22/17 06:00 MCV 93.5 fl (80-96) 08/22/17 06:00 MCH 31.7 pg (25.7-33.7) 08/22/17 06:00 MCHC 33.9 g/dl (32.0-35.9) 08/22/17 06:00 RDW 15.3 % (11.9-15.9) 08/22/17 06:00 Plt Count 336 K/MM3 (134-434) D 08/22/17 06:00 MPV 9.2 fl (7.5-11.1) 08/22/17 06:00 Sodium 138 mmol/L (136-145) 08/22/17 06:00 Potassium 3.7 mmol/L (3.5-5.1) 08/22/17 06:00 Chloride 102 mmol/L (98-107) 08/22/17 06:00 Carbon Dioxide 26 mmol/L (21-32) 08/22/17 06:00 Anion Gap 10 (8-16) 08/22/17 06:00 BUN 14 mg/dL (7-18) 08/22/17 06:00 Creatinine 1.1 mg/dL (0.7-1.3) D 08/22/17 06:00 Creat Clearance w eGFR > 60 (>60) 08/22/17 06:00 Random Glucose 139 mg/dL (74-106) H D 08/22/17 06:00 Calcium 9.0 mg/dL (8.5-10.1) 08/22/17 06:00 Total Bilirubin 1.2 mg/dL (0.2-1.0) H D 08/22/17 06:00 AST 41 U/L (15-37) H 08/22/17 06:00 ALT 40 U/L (12-78) 08/22/17 06:00 Alkaline Phosphatase 76 U/L (45-117) D 08/22/17 06:00 Total Protein 7.6 g/dl (6.4-8.2) D 08/22/17 06:00 Albumin 4.4 g/dl (3.4-5.0) D 08/22/17 06:00 Urine Color Yellow 08/21/17 18:17 Urine Appearance Clear 08/21/17 18:17 Urine pH 5.0 (5.0-8.0) 08/21/17 18:17 Ur Specific [place] 1.026 (1.001-1.035) 08/21/17 18:17 Urine Protein Negative (NEGATIVE) 08/21/17 18:17 Urine Glucose (UA) Negative (NEGATIVE) 08/21/17 18:17 Urine Ketones 1+ (NEGATIVE) H 08/21/17 18:17 Urine Blood Negative (NEGATIVE) 08/21/17 18:17 Urine Nitrite Negative (NEGATIVE) 08/21/17 18:17 Urine Bilirubin Negative (<2.0 mg/dL) 08/21/17 18:17 Urine Urobilinogen Negative mg/dL (0.2-1.0) 08/21/17 18:17 Ur Leukocyte Esterase Negative (NEGATIVE) 08/21/17 18:17 RPR Titer Nonreactive (NONREACTIVE) 08/22/17 06:00 lab noted - Treatment Hospital Course: Detox Protocol Followed, Detoxed Safely, Responded well, Discharged Condition Good, Rehab Referral Accepted Patient has Accepted a Rehab Referral to: bring back to life recovery program as per counselor arranged - Medication Discharge Medications: Ambulatory Orders NK [No Known Home Medication] 12/27/16 - Diagnosis (1) Alcohol dependence with uncomplicated withdrawal Current Visit: Yes Status: Acute (2) Nicotine dependence Current Visit: Yes Status: Acute Qualifiers: Nicotine product type: cigarettes Substance use status: in withdrawal Qualified Code(s): F17.213 - Nicotine dependence, cigarettes, with withdrawal (3) Positive PPD, treated Current Visit: No Status: Resolved - AMA Did Patient Leave Against Medical Advice: No
== END 2017-08-25 09:10 | disposition home or self-care (01) | DRG 775 ==
LOC: YASAS 12:34 → Y6N 17:41
PROVIDERS: ADMIT Surgery; ATTEND Surgery
PROC: HZ2ZZZZ Detoxification Services for Substance Abuse Treatment (ICD-10-PCS; principal; 2017-08-21)
DX: F10.230 Alcohol dependence with withdrawal, uncomplicated (principal); F17.213 Nicotine dependence, cigarettes, with withdrawal; G47.00 Insomnia, unspecified; R76.11 Nonspecific reaction to tuberculin skin test without active tuberculosis
CPT/HCPCS: 36415; 71046-TC-FY; 80053; 81003; 85027; 86593; 93005; 93010

== ENCOUNTER 2018-01-06 10:30 | Inpatient (IN) | payer OTHER ==
[2018-01-06 10:43] VITALS: BMI 20.9
--- NOTE | 2018-01-06 11:36 | HP ---
CIWA Score - CIWA Score Nausea/Vomitin Muscle Tremors: 3 Anxiety: 3 Agitation: 0-Normal Activity Paroxysmal Sweats: 1-Minimal Palms Moist Orientation: 1-Uncertain about Date Tacttile Disturbances: 0-None Auditory Disturbances: 1-Very Mild Visual Disturbances: 1-Very Mild Sensitivity Headache: 1-Very Mild CIWA-Ar Total Score: 13 Admission ROS BHS - HPI Chief Complaint: I need help, I need to stop, I'm tired of drinking - I've got to get help Allergies/Adverse Reactions: Allergies Allergy/AdvReac Type Severity Reaction Status Date / Time tomato Allergy Intermediate Hives Verified 01/06/18 11:14 No Known Drug Allergies Allergy Unknown Verified 12/27/16 21:47 History of Present Illness: 52 yo gentleman here for detox from alcohol - this is one of several admissions for treatment. 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 Exam Limitations: Clinical Condition - Ebola screening Have you traveled outside of the country in the last 21 days: No (N) Have you had contact with anyone from an Ebola affected area: No Have you been sick,other than usual withdrawal symptoms: No Do you have a fever: No - Review of Systems Constitutional: Loss of Appetite, Changes in sleep, Weakness EENT: reports: No Symptoms Reported Respiratory: reports: No Symptoms reported Cardiac: reports: No Symptoms Reported GI: reports: Diarrhea, Nausea, Poor Appetite, Poor Fluid Intake, Indigestion, Abdominal cramping : reports: Frequency Musculoskeletal: reports: No Symptoms Reported Integumentary: reports: Dryness Neuro: reports: Headache, Tremors Endocrine: reports: No Symptoms Reported Hematology: reports: No Symptoms Reported Psychiatric: reports: Judgement Intact, Mood/Affect Appropiate, Anxious Other Systems: Reviewed and Negative Patient History - Patient Medical History Hx Anemia: No Hx Asthma: No Hx Chronic Obstructive Pulmonary Disease (COPD): No Hx Cancer: No Hx Cardiac Disorders: No Hx Congestive Heart Failure: No Hx Hypertension: No Hx Hypercholesterolemia: No Hx Pacemaker: No HX Cerebrovascular Accident: No Hx Seizures: No Hx Dementia: No Hx Diabetes: No Hx Gastrointestinal Disorders: No Hx Liver Disease: No Hx Genitourinary Disorders: No Hx Sexually Transmitted Disorders: No Hx Renal Disease (ESRD): No Hx Thyroid Disease: No Hx Human Immunodeficiency Virus (HIV): No (last tested 1 month ago ) Hx Hepatitis C: No Hx Depression: No Hx Suicide Attempt: No Hx Bipolar Disorder: No Hx Schizophrenia: No - Patient Surgical History Past Surgical History: No Hx Neurologic Surgery: No Hx Cataract Extraction: No Hx Cardiac Surgery: No Hx Lung Surgery: No Hx Breast Surgery: No Hx Breast Biopsy: No Hx Abdominal Surgery: No Hx Appendectomy: No Hx Cholecystectomy: No Hx Genitourinary Surgery: No Hx Section: No Hx Orthopedic Surgery: No Anesthesia Reaction: No - PPD History Previous Implant?: No Documented Results: Positive w/o proof (CXR 08/22/17 done;) Implanted On Prior [facility] Admission?: No Date: 02/23/13 (took INH x 6 mo) PPD to be Administered?: No - Reproductive History Patient is a Female of Child Bearing Age (11 -55 yrs old): No (male) - Smoking Cessation Smoking history: Current every day smoker Have you smoked in the past 12 months: Yes Aproximately how many cigarettes per day: 4 Cigars Per Day: 0 Hx Chewing Tobacco Use: No Initiated information on smoking cessation: Yes 'Breaking Loose' booklet given: 01/06/18 (give on floor) - Substance & Tx. History Hx Alcohol Use: Yes Hx Substance Use: No Substance Use Type: Alcohol Hx Substance Use Treatment: Yes (detox) - Substances Abused Alcohol Route: Oral Frequency: Daily Amount used: vodka- 2 pts daily; 1 beer Age of first use: 22 Date of Last Use: 01/06/18 Family Disease History - Family Disease History Family Disease History: Diabetes: Grandparent, Heart Disease: Father (/ stroke), Sister (four - living - healthy (one MI_), CA: Mother ( FROM BONE CANCER,), Other: Father, Mother, Brother (one - living - adult), Sister, Son (one adult - healthy) Admission Physical Exam BHS - Vital Signs Vital Signs: Vital Signs - 24 hr 01/06/18 10:41 Temperature 99 F Pulse Rate 102 H Respiratory 18 Rate Blood Pressure 148/83 - Physical General Appearance: Yes: Nourished, Appropriately Dressed, Moderate Distress, Anxious HEENTM: Yes: EOMI, Hearing grossly Normal, Normocephalic, Normal Voice, Pharynx Normal Respiratory: Yes: Normal Breath Sounds, No Respiratory Distress Neck: Yes: No masses,lesions,Nodules, Supple Breast: Yes: Breast Exam Deferred Cardiology: Yes: Regular Rhythm, Regular Rate Abdominal: Yes: Non Tender, Flat, Soft Genitourinary: Yes: Frequency Back: Yes: Normal Inspection Musculoskeletal: Yes: full range of Motion, Gait Steady Extremities: Yes: Normal Capillary Refill, Normal Inspection, Normal Range of Motion, Non-Tender Neurological: Yes: Fully Oriented, Alert, Motor Strength 5/5, Normal Mood/Affect , Normal Response Integumentary: Yes: Normal Color, Dry, Warm Lymphatic: Yes: Within Normal Limits - Diagnostic (1) Alcohol dependence with uncomplicated withdrawal Current Visit: Yes Status: Acute (2) Nicotine dependence Current Visit: Yes Status: Acute Qualifiers: Nicotine product type: cigarettes Substance use status: in withdrawal Qualified Code(s): F17.213 - Nicotine dependence, cigarettes, with withdrawal (3) Gout Current Visit: Yes Status: Chronic (4) Positive PPD, treated Current Visit: Yes Status: Resolved Cleared for Admission [facility] - Detox or Rehab [facility] Level of Care: Medically Managed Detox Regimen/Protocol: Librium [facility] Breath Alcohol Content Breath Alcohol Content: 0.087 Urine Drug Screen - Results Drug Screen Negative: Yes
[2018-01-06] MEDS ORDERED: MAGNESIUM CITRATE 300 ML BOTTLE PO PRN (11:38)
[2018-01-06] MEDS ORDERED: MENTHOL/PHENOL 1 EACH UD MM PRN (11:38)
[2018-01-06] MEDS ORDERED: guaiFENesin/D-METHORPHAN HB 10 ML UNIT-DOSE CUPS PO PRN (11:38)
[2018-01-06] MEDS ORDERED: hydrOXYzine PAMOATE 25 MG CAPSULE (FP) PO PRN (11:38)
[2018-01-06] MEDS ORDERED: P-EPHED 60MG/TRIPROLIDI 2.5MG TABLET PO PRN (11:38)
[2018-01-06] MEDS ORDERED: MAGNESIUM HYDROX 2400MG/30ML ORAL SUSPENSION 30 ML CUP PO PRN (11:38)
[2018-01-06] MEDS ORDERED: NICOTINE POLACRILEX 2 MG GUM BUC PRN (11:38)
[2018-01-06] MEDS ORDERED: chlordiazePOXIDE HCL 25 MG CAPSULE PO PRN (11:38)
[2018-01-06] MEDS ORDERED: LOPERAMIDE HCL 2 MG CAPSULE PO PRN (11:38)
[2018-01-06] MEDS ORDERED: IBUPROFEN 400 MG TABLET (FP) PO PRN (11:38)
[2018-01-06] MEDS ORDERED: ACETAMINOPHEN 325 MG TABLET (FP) PO PRN (11:38)
[2018-01-06] MEDS ORDERED: MAG HYDROX/AL HYDROX/SIMETH 30 ML UNIT-DOSE CUP PO PRN (11:38)
[2018-01-06] MEDS ORDERED: chlordiazePOXIDE HCL 25 MG CAPSULE PO ONE (12:15)
--- NOTE | 2018-01-06 15:41 | EKG ---
Test Reason : Blood Pressure : / mmHG Vent. Rate : 098 BPM Atrial Rate : 098 BPM P-R Int : 116 ms QRS Dur : 094 ms QT Int : 358 ms P-R-T Axes : 079 072 067 degrees QTc Int : 457 ms SINUS RHYTHM WITH PREMATURE SUPRAVENTRICULAR COMPLEXES OTHERWISE NORMAL ECG WHEN COMPARED WITH ECG OF 21-AUG-2017 18:28, PREMATURE SUPRAVENTRICULAR COMPLEXES ARE NOW PRESENT VENT. RATE HAS INCREASED BY 33 BPM Confirmed by MD Jonn, Bola ([id number]) on 01/06/2018 3:40:41 PM Referred By: Confirmed By:Bola Lunsford MD
[2018-01-06] MEDS: chlordiazePOXIDE HCL 25 MG CAPSULE PO SCH ×2 (17:50→22:31)
[2018-01-06 18:05] LABS: URINE APPEARANCE TURBID; URINE BILIRUBIN NEGATIVE (<2.0 mg/dL); URINE COLOR YELLOW; URINE GLUCOSE (UA) NEGATIVE (NEGATIVE); URINE KETONE TRACE (NEGATIVE); URINE LEUK ESTERASE NEGATIVE (NEGATIVE); URINE NITRITE NEGATIVE (NEGATIVE); URINE PROTEIN NEGATIVE (NEGATIVE); URINE UROBILINOGEN NEGATIVE mg/dL (0.2-1.0)
[2018-01-06] MEDS: MELATONIN 5 MG TABLETS PO PRN (22:32)
[2018-01-06] MEDS: THIAMINE HCL 100 MG TABLET (FP) PO SCH (22:32)
[2018-01-07] MEDS: chlordiazePOXIDE HCL 25 MG CAPSULE PO SCH ×4 (06:11→23:54)
[2018-01-07 10:17] LABS: HEMATOCRIT 35.5 % (35.4-49); HEMOGLOBIN 11.7 GM/dL (11.7-16.9); MCH 29.3 pg (25.7-33.7); MCHC 32.9 g/dl (32.0-35.9); MEAN CELL VOLUME 89.1 fl (80-96); MEAN PLT VOLUME 8.8 fl (7.5-11.1); PLATELET COUNT 252 K/MM3 (134-434); RBC 3.99 M/mm3 (4.00-5.60); RDW 15.9 % (11.9-15.9); WHITE BLOOD COUNT 4.3 K/mm3 (4.0-10.0)
[2018-01-07 10:31] LABS: ALBUMIN 3.6 g/dl (3.4-5.0); ALK PHOS 65 U/L (45-117); ANION GAP 9 MMOL/L (8-16); BILIRUBIN,TOTAL 0.8 mg/dL (0.2-1); BLOOD UREA NITROGEN 10 mg/dL (7-18); CALCIUM 8.5 mg/dL (8.5-10.1); CHLORIDE 102 mmol/L (98-107); CO2 30 mmol/L (21-32); CREATININE 0.8 mg/dL (0.55-1.3); GLUCOSE,RANDOM 80 mg/dL (74-106); POTASSIUM 3.9 mmol/L (3.5-5.1); SGOT/AST 42 U/L (15-37); SGPT/ALT 44 U/L (13-61); SODIUM 140 mmol/L (136-145); TOT PROT 6.4 g/dl (6.4-8.2)
[2018-01-07] MEDS: PRENATAL VITAMINS W/ FOLIC ACID TABLET (FP) PO SCH (11:11)
--- NOTE | 2018-01-07 13:07 | PN ---
[facility] CIWA - CIWA Score Nausea/Vomitin-No Nausea/No Vomiting Muscle Tremors: 3 Anxiety: 2 Agitation: 2 Paroxysmal Sweats: 1-Minimal Palms Moist Orientation: 1-Uncertain about Date Tacttile Disturbances: 1-Very Mild Itch/Numbness Auditory Disturbances: 1-Very Mild Visual Disturbances: 0-None Headache: 1-Very Mild CIWA-Ar Total Score: 12 S Progress Note (SOAP) Subjective: uncertain to date, sweat tremor mild gi distress anxiety Objective: 01/07/18 13:15 Vital Signs Temperature 98.2 F 01/07/18 09:33 Pulse Rate 60 01/07/18 09:33 Respiratory Rate 18 01/07/18 09:33 Blood Pressure 130/79 01/07/18 09:33 O2 Sat by Pulse Oximetry (%) Laboratory Last Values WBC 4.3 K/mm3 (4.0-10.0) 01/07/18 07:30 RBC 3.99 M/mm3 (4.00-5.60) L 01/07/18 07:30 Hgb 11.7 GM/dL (11.7-16.9) 01/07/18 07:30 Hct 35.5 % (35.4-49) 01/07/18 07:30 MCV 89.1 fl (80-96) 01/07/18 07:30 MCH 29.3 pg (25.7-33.7) 01/07/18 07:30 MCHC 32.9 g/dl (32.0-35.9) 01/07/18 07:30 RDW 15.9 % (11.9-15.9) 01/07/18 07:30 Plt Count 252 K/MM3 (134-434) D 01/07/18 07:30 MPV 8.8 fl (7.5-11.1) 01/07/18 07:30 Sodium 140 mmol/L (136-145) 01/07/18 07:30 Potassium 3.9 mmol/L (3.5-5.1) 01/07/18 07:30 Chloride 102 mmol/L (98-107) 01/07/18 07:30 Carbon Dioxide 30 mmol/L (21-32) 01/07/18 07:30 Anion Gap 9 MMOL/L (8-16) 01/07/18 07:30 BUN 10 mg/dL (7-18) 01/07/18 07:30 Creatinine 0.8 mg/dL (0.55-1.3) 01/07/18 07:30 Creat Clearance w eGFR > 60 (>60) 01/07/18 07:30 Random Glucose 80 mg/dL (74-106) 01/07/18 07:30 Calcium 8.5 mg/dL (8.5-10.1) 01/07/18 07:30 Total Bilirubin 0.8 mg/dL (0.2-1) 01/07/18 07:30 AST 42 U/L (15-37) H 01/07/18 07:30 ALT 44 U/L (13-61) 01/07/18 07:30 Alkaline Phosphatase 65 U/L (45-117) 01/07/18 07:30 Total Protein 6.4 g/dl (6.4-8.2) 01/07/18 07:30 Albumin 3.6 g/dl (3.4-5.0) 01/07/18 07:30 Urine Color Yellow 01/06/18 12:02 Urine Appearance Turbid 01/06/18 12:02 Urine pH 5.0 (5.0-8.0) 01/06/18 12:02 Ur Specific [place] 1.028 (1.001-1.035) 01/06/18 12:02 Urine Protein Negative (NEGATIVE) 01/06/18 12:02 Urine Glucose (UA) Negative (NEGATIVE) 01/06/18 12:02 Urine Ketones Trace (NEGATIVE) H 01/06/18 12:02 Urine Blood Negative (NEGATIVE) 01/06/18 12:02 Urine Nitrite Negative (NEGATIVE) 01/06/18 12:02 Urine Bilirubin Negative (<2.0 mg/dL) 01/06/18 12:02 Urine Urobilinogen Negative mg/dL (0.2-1.0) 01/06/18 12:02 Ur Leukocyte Esterase Negative (NEGATIVE) 01/06/18 12:02 RPR Titer Nonreactive (NONREACTIVE) 01/07/18 07:30 lab noted Assessment: 01/07/18 13:15 withdrawal sx Plan: continue detox
[2018-01-07] MEDS: THIAMINE HCL 100 MG TABLET (FP) PO SCH (23:54)
[2018-01-08] MEDS: chlordiazePOXIDE HCL 25 MG CAPSULE PO SCH ×2 (06:08→10:39)
[2018-01-08] MEDS: PRENATAL VITAMINS W/ FOLIC ACID TABLET (FP) PO SCH (10:39)
--- NOTE | 2018-01-08 14:46 | PN ---
[facility] CIWA - CIWA Score Nausea/Vomitin-No Nausea/No Vomiting Muscle Tremors: 3 Anxiety: 1-Mildly Anxious Agitation: 1-Slight > Activity Paroxysmal Sweats: No Perspiration Orientation: 0-Oriented Tacttile Disturbances: 0-None Auditory Disturbances: 0-None Visual Disturbances: 0-None Headache: 0-None Present CIWA-Ar Total Score: 5 S Progress Note (SOAP) Subjective: C/o slight shakes, States had some back pain lst night but feels better. Denies nausea or vomiting. Objective: A&O x3. And S/NT/BS+. Mild tremors felt in hands. Slight tachycardia which resolved. 01/08/18 14:45 Vital Signs 01/08/18 01/08/18 09:11 13:59 Temperature 99.5 F 97.3 F L Pulse Rate 100 H 79 Respiratory 18 18 Rate Blood Pressure 127/83 137/75 Laboratory Last Values WBC 4.3 K/mm3 (4.0-10.0) 01/07/18 07:30 RBC 3.99 M/mm3 (4.00-5.60) L 01/07/18 07:30 Hgb 11.7 GM/dL (11.7-16.9) 01/07/18 07:30 Hct 35.5 % (35.4-49) 01/07/18 07:30 MCV 89.1 fl (80-96) 01/07/18 07:30 MCH 29.3 pg (25.7-33.7) 01/07/18 07:30 MCHC 32.9 g/dl (32.0-35.9) 01/07/18 07:30 RDW 15.9 % (11.9-15.9) 01/07/18 07:30 Plt Count 252 K/MM3 (134-434) D 01/07/18 07:30 MPV 8.8 fl (7.5-11.1) 01/07/18 07:30 Sodium 140 mmol/L (136-145) 01/07/18 07:30 Potassium 3.9 mmol/L (3.5-5.1) 01/07/18 07:30 Chloride 102 mmol/L (98-107) 01/07/18 07:30 Carbon Dioxide 30 mmol/L (21-32) 01/07/18 07:30 Anion Gap 9 MMOL/L (8-16) 01/07/18 07:30 BUN 10 mg/dL (7-18) 01/07/18 07:30 Creatinine 0.8 mg/dL (0.55-1.3) 01/07/18 07:30 Creat Clearance w eGFR > 60 (>60) 01/07/18 07:30 Random Glucose 80 mg/dL (74-106) 01/07/18 07:30 Calcium 8.5 mg/dL (8.5-10.1) 01/07/18 07:30 Total Bilirubin 0.8 mg/dL (0.2-1) 01/07/18 07:30 AST 42 U/L (15-37) H 01/07/18 07:30 ALT 44 U/L (13-61) 01/07/18 07:30 Alkaline Phosphatase 65 U/L (45-117) 01/07/18 07:30 Total Protein 6.4 g/dl (6.4-8.2) 01/07/18 07:30 Albumin 3.6 g/dl (3.4-5.0) 01/07/18 07:30 Urine Color Yellow 01/06/18 12:02 Urine Appearance Turbid 01/06/18 12:02 Urine pH 5.0 (5.0-8.0) 01/06/18 12:02 Ur Specific [place] 1.028 (1.001-1.035) 01/06/18 12:02 Urine Protein Negative (NEGATIVE) 01/06/18 12:02 Urine Glucose (UA) Negative (NEGATIVE) 01/06/18 12:02 Urine Ketones Trace (NEGATIVE) H 01/06/18 12:02 Urine Blood Negative (NEGATIVE) 01/06/18 12:02 Urine Nitrite Negative (NEGATIVE) 01/06/18 12:02 Urine Bilirubin Negative (<2.0 mg/dL) 01/06/18 12:02 Urine Urobilinogen Negative mg/dL (0.2-1.0) 01/06/18 12:02 Ur Leukocyte Esterase Negative (NEGATIVE) 01/06/18 12:02 RPR Titer Nonreactive (NONREACTIVE) 01/07/18 07:30 Labs reviewed. Assessment: Withdrawal symptoms. Plan: Continue detox.
[2018-01-08] MEDS: chlordiazePOXIDE 5 MG CAPSULE PO SCH ×2 (17:43→22:36)
[2018-01-08] MEDS: THIAMINE HCL 100 MG TABLET (FP) PO SCH (22:36)
[2018-01-09] MEDS: chlordiazePOXIDE 5 MG CAPSULE PO SCH (06:40)
[2018-01-09] MEDS: chlordiazePOXIDE HCL 10 MG CAPSULE PO SCH ×2 (17:38→22:36)
--- NOTE | 2018-01-09 17:43 | PN ---
[facility] Progress Note (SOAP) Subjective: feeling better no tremor less sweat social with peers in day Objective: 01/09/18 17:44 Vital Signs Temperature 97.7 F 01/09/18 12:55 Pulse Rate 83 01/09/18 12:55 Respiratory Rate 18 01/09/18 12:55 Blood Pressure 133/77 01/09/18 12:55 O2 Sat by Pulse Oximetry (%) Laboratory Last Values WBC 4.3 K/mm3 (4.0-10.0) 01/07/18 07:30 RBC 3.99 M/mm3 (4.00-5.60) L 01/07/18 07:30 Hgb 11.7 GM/dL (11.7-16.9) 01/07/18 07:30 Hct 35.5 % (35.4-49) 01/07/18 07:30 MCV 89.1 fl (80-96) 01/07/18 07:30 MCH 29.3 pg (25.7-33.7) 01/07/18 07:30 MCHC 32.9 g/dl (32.0-35.9) 01/07/18 07:30 RDW 15.9 % (11.9-15.9) 01/07/18 07:30 Plt Count 252 K/MM3 (134-434) D 01/07/18 07:30 MPV 8.8 fl (7.5-11.1) 01/07/18 07:30 Sodium 140 mmol/L (136-145) 01/07/18 07:30 Potassium 3.9 mmol/L (3.5-5.1) 01/07/18 07:30 Chloride 102 mmol/L (98-107) 01/07/18 07:30 Carbon Dioxide 30 mmol/L (21-32) 01/07/18 07:30 Anion Gap 9 MMOL/L (8-16) 01/07/18 07:30 BUN 10 mg/dL (7-18) 01/07/18 07:30 Creatinine 0.8 mg/dL (0.55-1.3) 01/07/18 07:30 Creat Clearance w eGFR > 60 (>60) 01/07/18 07:30 Random Glucose 80 mg/dL (74-106) 01/07/18 07:30 Calcium 8.5 mg/dL (8.5-10.1) 01/07/18 07:30 Total Bilirubin 0.8 mg/dL (0.2-1) 01/07/18 07:30 AST 42 U/L (15-37) H 01/07/18 07:30 ALT 44 U/L (13-61) 01/07/18 07:30 Alkaline Phosphatase 65 U/L (45-117) 01/07/18 07:30 Total Protein 6.4 g/dl (6.4-8.2) 01/07/18 07:30 Albumin 3.6 g/dl (3.4-5.0) 01/07/18 07:30 Urine Color Yellow 01/06/18 12:02 Urine Appearance Turbid 01/06/18 12:02 Urine pH 5.0 (5.0-8.0) 01/06/18 12:02 Ur Specific [place] 1.028 (1.001-1.035) 01/06/18 12:02 Urine Protein Negative (NEGATIVE) 01/06/18 12:02 Urine Glucose (UA) Negative (NEGATIVE) 01/06/18 12:02 Urine Ketones Trace (NEGATIVE) H 01/06/18 12:02 Urine Blood Negative (NEGATIVE) 01/06/18 12:02 Urine Nitrite Negative (NEGATIVE) 01/06/18 12:02 Urine Bilirubin Negative (<2.0 mg/dL) 01/06/18 12:02 Urine Urobilinogen Negative mg/dL (0.2-1.0) 01/06/18 12:02 Ur Leukocyte Esterase Negative (NEGATIVE) 01/06/18 12:02 RPR Titer Nonreactive (NONREACTIVE) 01/07/18 07:30 lab noted Assessment: 01/09/18 17:45 mild withdrawal sx Plan: continue detox
[2018-01-09] MEDS: MELATONIN 5 MG TABLETS PO PRN (22:35)
[2018-01-09] MEDS: THIAMINE HCL 100 MG TABLET (FP) PO SCH (22:35)
[2018-01-10] MEDS: chlordiazePOXIDE HCL 10 MG CAPSULE PO SCH (06:10)
--- NOTE | 2018-01-10 08:49 | DS ---
[facility] Detox Discharge Summary Admission Date: 01/06/18 Discharge Date: 01/10/18 - History Present History: Alcohol Dependence Additional Comments: 52years old male admitted on 01/06/18 for alcohol withdrawal sx completed alcohol detox regimen tolerated well denies alcohol withdrawal sx alert oriented x 3 no acute distress aftercare [facility] outpatient intensive program - Physical Exam Results Vital Signs: Vital Signs Temperature 97.5 F L 01/10/18 08:02 Pulse Rate 72 01/10/18 08:02 Respiratory Rate 18 01/10/18 08:02 Blood Pressure 118/68 01/10/18 08:02 O2 Sat by Pulse Oximetry (%) Pertinent Admission Physical Exam Findings: alcohol withdrawal sx Vital Signs Temperature 98.1 F 01/10/18 09:26 Pulse Rate 79 01/10/18 09:26 Respiratory Rate 18 01/10/18 09:26 Blood Pressure 152/85 01/10/18 09:26 O2 Sat by Pulse Oximetry (%) Laboratory Last Values WBC 4.3 K/mm3 (4.0-10.0) 01/07/18 07:30 RBC 3.99 M/mm3 (4.00-5.60) L 01/07/18 07:30 Hgb 11.7 GM/dL (11.7-16.9) 01/07/18 07:30 Hct 35.5 % (35.4-49) 01/07/18 07:30 MCV 89.1 fl (80-96) 01/07/18 07:30 MCH 29.3 pg (25.7-33.7) 01/07/18 07:30 MCHC 32.9 g/dl (32.0-35.9) 01/07/18 07:30 RDW 15.9 % (11.9-15.9) 01/07/18 07:30 Plt Count 252 K/MM3 (134-434) D 01/07/18 07:30 MPV 8.8 fl (7.5-11.1) 01/07/18 07:30 Sodium 140 mmol/L (136-145) 01/07/18 07:30 Potassium 3.9 mmol/L (3.5-5.1) 01/07/18 07:30 Chloride 102 mmol/L (98-107) 01/07/18 07:30 Carbon Dioxide 30 mmol/L (21-32) 01/07/18 07:30 Anion Gap 9 MMOL/L (8-16) 01/07/18 07:30 BUN 10 mg/dL (7-18) 01/07/18 07:30 Creatinine 0.8 mg/dL (0.55-1.3) 01/07/18 07:30 Creat Clearance w eGFR > 60 (>60) 01/07/18 07:30 Random Glucose 80 mg/dL (74-106) 01/07/18 07:30 Calcium 8.5 mg/dL (8.5-10.1) 01/07/18 07:30 Total Bilirubin 0.8 mg/dL (0.2-1) 01/07/18 07:30 AST 42 U/L (15-37) H 01/07/18 07:30 ALT 44 U/L (13-61) 01/07/18 07:30 Alkaline Phosphatase 65 U/L (45-117) 01/07/18 07:30 Total Protein 6.4 g/dl (6.4-8.2) 01/07/18 07:30 Albumin 3.6 g/dl (3.4-5.0) 01/07/18 07:30 Urine Color Yellow 01/06/18 12:02 Urine Appearance Turbid 01/06/18 12:02 Urine pH 5.0 (5.0-8.0) 01/06/18 12:02 Ur Specific [place] 1.028 (1.001-1.035) 01/06/18 12:02 Urine Protein Negative (NEGATIVE) 01/06/18 12:02 Urine Glucose (UA) Negative (NEGATIVE) 01/06/18 12:02 Urine Ketones Trace (NEGATIVE) H 01/06/18 12:02 Urine Blood Negative (NEGATIVE) 01/06/18 12:02 Urine Nitrite Negative (NEGATIVE) 01/06/18 12:02 Urine Bilirubin Negative (<2.0 mg/dL) 01/06/18 12:02 Urine Urobilinogen Negative mg/dL (0.2-1.0) 01/06/18 12:02 Ur Leukocyte Esterase Negative (NEGATIVE) 01/06/18 12:02 RPR Titer Nonreactive (NONREACTIVE) 01/07/18 07:30 lab noted - Treatment Hospital Course: Detox Protocol Followed, Detoxed Safely, Responded well, Discharged Condition Good, Rehab Referral Accepted Patient has Accepted a Rehab Referral to: [facility] - Medication Discharge Medications: Ambulatory Orders NK [No Known Home Medication] 12/27/16 - Diagnosis (1) ALCOHOL INDUCED MOOD DISORDER Status: Suspected (2) Alcohol dependence with uncomplicated withdrawal Status: Acute (3) Nicotine dependence Status: Acute Qualifiers: Nicotine product type: cigarettes Substance use status: in withdrawal Qualified Code(s): F17.213 - Nicotine dependence, cigarettes, with withdrawal (4) Gout Status: Chronic (5) Positive PPD, treated Status: Resolved - AMA Did Patient Leave Against Medical Advice: No
[2018-01-10 09:26] VITALS: BP 152/85; PULSE 79; TEMP 98.1
== END 2018-01-10 09:36 | disposition home or self-care (01) | DRG 775 ==
LOC: YASAS 10:30 → Y6N 11:27
PROC: HZ2ZZZZ Detoxification Services for Substance Abuse Treatment (ICD-10-PCS; principal; 2018-01-06)
DX: F10.230 Alcohol dependence with withdrawal, uncomplicated (principal); F17.213 Nicotine dependence, cigarettes, with withdrawal; F10.24 Alcohol dependence with alcohol-induced mood disorder; M10.9 Gout, unspecified; R76.11 Nonspecific reaction to tuberculin skin test without active tuberculosis
CPT/HCPCS: 36415; 80053; 81003; 85027; 86593; 93005; 93010

== ENCOUNTER 2018-05-18 12:09 | Inpatient (IN) | payer OTHER ==
[2018-05-18 12:21] VITALS: BMI 21.4
[2018-05-18] MEDS ORDERED: MENTHOL/PHENOL 1 EACH UD MM PRN (14:39)
[2018-05-18] MEDS ORDERED: guaiFENesin/D-METHORPHAN HB 10 ML UNIT-DOSE CUPS PO PRN (14:39)
[2018-05-18] MEDS ORDERED: MAG HYDROX/AL HYDROX/SIMETH 30 ML UNIT-DOSE CUP PO PRN (14:39)
[2018-05-18] MEDS ORDERED: IBUPROFEN 400 MG TABLET (FP) PO PRN (14:39)
[2018-05-18] MEDS ORDERED: ACETAMINOPHEN 325 MG TABLET (FP) PO PRN (14:39)
[2018-05-18] MEDS ORDERED: NICOTINE POLACRILEX 2 MG GUM BC PRN (14:39)
[2018-05-18] MEDS ORDERED: LOPERAMIDE HCL 2 MG CAPSULE PO PRN (14:39)
[2018-05-18] MEDS ORDERED: MAGNESIUM HYDROX 2400MG/30ML ORAL SUSPENSION 30 ML CUP PO PRN (14:39)
[2018-05-18] MEDS ORDERED: hydrOXYzine PAMOATE 50 MG CAPSULE (FP) PO PRN (14:39)
[2018-05-18] MEDS ORDERED: MAGNESIUM CITRATE 300 ML BOTTLE PO PRN (14:39)
[2018-05-18] MEDS ORDERED: P-EPHED 60MG/TRIPROLIDI 2.5MG TABLET PO PRN (14:39)
[2018-05-18] MEDS ORDERED: chlordiazePOXIDE HCL 25 MG CAPSULE PO PRN (14:40)
--- NOTE | 2018-05-18 14:47 | HP ---
CIWA Score Nausea/Vomitin Muscle Tremors: 2 Anxiety: 3 Agitation: 2 Paroxysmal Sweats: No Perspiration Orientation: 0-Oriented Tacttile Disturbances: 0-None Auditory Disturbances: 0-None Visual Disturbances: 0-None Headache: 3-Moderate CIWA-Ar Total Score: 12 - Admission Criteria [facility] Guidelines: Admission for Medically Managed Detox: Requires at least one of the followin. CIWA greater than 12 2. Seizures within the past 24 hours 3. Delirium tremens within the past 24 hours 4. Hallucinations within the past 24 hours 5. Acute intervention needed for co occurring medical disorder 6. Acute intervention needed for co occurring psychiatric disorder 7. Severe withdrawal that cannot be handled at a lower level of care (continued vomiting, continued diarrhea, abnormal vital signs) requiring intravenous medication and/or fluids 8. Admission [facility] Chief Complaint: ETOH WITHDRAWAL SX Allergies/Adverse Reactions: Allergies Allergy/AdvReac Type Severity Reaction Status Date / Time tomato Allergy Intermediate Hives Verified 05/18/18 14:32 No Known Drug Allergies Allergy Unknown Verified 05/18/18 14:32 History of Present Illness: PATIENT PRESENTS WITH ETOH WITHDRAWAL SX. PATIENT IS KNOWN TO [facility] AND LAST ADMISSION TO DETOX 02/01. PATIENT STARTING DRINKING AT AGE 23 AND DRINKS 2 PINTS OF VODKA DAILY. LAST DRINK WAS LAST NIGHT. 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 PATIENT REPORTS H/O BINGE DRINKING. PATIENT DENIES USE OF OTHER SUBSTANCES. UDS NEGATIVE. PATIENT PMH INCLUDES TOBACCO USE DISORDER, GOUT AND +PPD. PATIENT DENIES SI/HI AND SUICIDE ATTEMPTS. - Ebola screening Have you traveled outside of the country in the last 21 days: No Have you had contact with anyone from an Ebola affected area: No Have you been sick,other than usual withdrawal symptoms: No Do you have a fever: No - Review of Systems Constitutional: Changes in sleep, Unexplained wgt Loss EENT: reports: Nose Congestion Respiratory: reports: No Symptoms reported Cardiac: reports: No Symptoms Reported GI: reports: Diarrhea, Nausea, Poor Fluid Intake : reports: Frequency (DEPENDES ON ETOH INTAKE) Musculoskeletal: reports: No Symptoms Reported Integumentary: reports: No Symptoms Reported Neuro: reports: Headache, Tremors Endocrine: reports: Unexplained Weight Loss Hematology: reports: No Symptoms Reported Psychiatric: reports: Orientated x3, Anxious Patient History - Patient Medical History Hx Anemia: No Hx Asthma: No Hx Chronic Obstructive Pulmonary Disease (COPD): No Hx Cancer: No Hx Cardiac Disorders: No Hx Congestive Heart Failure: No Hx Hypertension: No Hx Hypercholesterolemia: No Hx Pacemaker: No HX Cerebrovascular Accident: No Hx Seizures: No Hx Dementia: No Hx Diabetes: No Hx Gastrointestinal Disorders: No Hx Liver Disease: No Hx Genitourinary Disorders: No Hx Sexually Transmitted Disorders: No Hx Renal Disease (ESRD): No Hx Thyroid Disease: No Hx Human Immunodeficiency Virus (HIV): No (last tested 1 month ago ) Hx Hepatitis C: No Hx Depression: No Hx Suicide Attempt: No Hx Bipolar Disorder: No Hx Schizophrenia: No - Patient Surgical History Past Surgical History: No Hx Neurologic Surgery: No Hx Cataract Extraction: No Hx Cardiac Surgery: No Hx Lung Surgery: No Hx Breast Surgery: No Hx Breast Biopsy: No Hx Abdominal Surgery: No Hx Appendectomy: No Hx Cholecystectomy: No Hx Genitourinary Surgery: No Hx Orthopedic Surgery: No Anesthesia Reaction: No - PPD History Previous Implant?: Yes Documented Results: Positive w/proof Implanted On Prior [facility] Admission?: No Date: 02/23/13 PPD to be Administered?: No - Smoking Cessation Smoking history: Current every day smoker Have you smoked in the past 12 months: Yes Aproximately how many cigarettes per day: 4 Cigars Per Day: 0 Hx Chewing Tobacco Use: No Initiated information on smoking cessation: Yes 'Breaking Loose' booklet given: 05/18/18 - Substance & Tx. History Hx Alcohol Use: Yes Hx Substance Use: No Substance Use Type: Alcohol Hx Substance Use Treatment: Yes - Substances Abused Alcohol Route: Oral Frequency: Daily Amount used: 1-2 pints vodka Age of first use: 23 Date of Last Use: 05/17/18 Family Disease History - Family Disease History Family Disease History: Diabetes: Grandparent, Heart Disease: Father (/ stroke), Sister (four - living - healthy (one MI_), CA: Mother ( FROM BONE CANCER,), Other: Father, Mother, Brother (one - living - adult), Sister, Son (one adult - healthy) Admission Physical Exam [facility] - Vital Signs Vital Signs: Vital Signs - 24 hr 05/18/18 12:19 Temperature 98.8 F Pulse Rate 95 H Respiratory 18 Rate Blood Pressure 139/93 - Physical General Appearance: Yes: No Apparent Distress, Nourished, Appropriately Dressed , Tremorous, Anxious HEENTM: Yes: EOMI, Hearing grossly Normal, Normocephalic, Normal Voice, WALTER, Pharynx Normal, Nasal Congestion Respiratory: Yes: Chest Non-Tender, Lungs Clear, Normal Breath Sounds, No Respiratory Distress, No Accessory Muscle Use Neck: Yes: No masses,lesions,Nodules, Supple, Trachea in good position Breast: Yes: Breast Exam Deferred Cardiology: Yes: Regular Rhythm, Regular Rate, S1, S2 Abdominal: Yes: Normal Bowel Sounds, Non Tender, Soft Genitourinary: Yes: Frequency Back: Yes: Normal Inspection Musculoskeletal: Yes: full range of Motion, Gait Steady Extremities: Yes: Normal Range of Motion, Non-Tender, Tremors Neurological: Yes: hand blocker II-XII NML intact, Fully Oriented, Alert, Motor Strength 5/5, Other (ANXIETY) Integumentary: Yes: Normal Color, Dry, Warm Lymphatic: Yes: Within Normal Limits - Diagnostic (1) Alcohol dependence with uncomplicated withdrawal Current Visit: Yes Status: Acute (2) Nicotine dependence Current Visit: Yes Status: Chronic Qualifiers: Nicotine product type: cigarettes Substance use status: uncomplicated Qualified Code(s): F17.210 - Nicotine dependence, cigarettes, uncomplicated (3) Gout Current Visit: Yes Status: Chronic (4) Positive PPD, treated Current Visit: Yes Status: Resolved Cleared for Admission [facility] - Detox or Rehab [facility] Level of Care: Medically Managed Detox Regimen/Protocol: Librium [facility] Breath Alcohol Content Breath Alcohol Content: 0 Urine Drug Screen - Results Drug Screen Negative: Yes
[2018-05-18] MEDS: chlordiazePOXIDE HCL 25 MG CAPSULE PO SCH ×2 (17:12→22:26)
[2018-05-18] MEDS: THIAMINE HCL 100 MG TABLET (FP) PO SCH (22:26)
[2018-05-19] MEDS: chlordiazePOXIDE HCL 25 MG CAPSULE PO SCH ×4 (05:49→22:25)
[2018-05-19] MEDS: PRENATAL VITAMINS W/ FOLIC ACID TABLET (FP) PO SCH (10:08)
[2018-05-19 10:41] LABS: HEMATOCRIT 34.7 % (35.4-49); HEMOGLOBIN 11.5 GM/dL (11.7-16.9); MCH 30.8 pg (25.7-33.7); MCHC 33.3 g/dl (32.0-35.9); MEAN CELL VOLUME 92.4 fl (80-96); MEAN PLT VOLUME 9.3 fl (7.5-11.1); PLATELET COUNT 261 K/MM3 (134-434); RBC 3.75 M/mm3 (4.00-5.60); WHITE BLOOD COUNT 6.3 K/mm3 (4.0-10.0)
[2018-05-19 11:03] LABS: ALBUMIN 4.5 g/dl (3.4-5.0); ALK PHOS 67 U/L (45-117); ANION GAP 9 MMOL/L (8-16); BILIRUBIN,TOTAL 0.4 mg/dL (0.2-1); BLOOD UREA NITROGEN 14 mg/dL (7-18); CALCIUM 9.2 mg/dL (8.5-10.1); CHLORIDE 103 mmol/L (98-107); CO2 28 mmol/L (21-32); CREATININE 1.1 mg/dL (0.55-1.3); GLUCOSE,RANDOM 121 mg/dL (74-106); POTASSIUM 3.8 mmol/L (3.5-5.1); SGOT/AST 48 U/L (15-37); SGPT/ALT 57 U/L (13-61); SODIUM 141 mmol/L (136-145); TOT PROT 7.3 g/dl (6.4-8.2)
--- NOTE | 2018-05-19 15:47 | PN ---
[facility] CIWA - CIWA Score Nausea/Vomitin-No Nausea/No Vomiting Muscle Tremors: 4-Moderate,w/Arms Extend Anxiety: 3 Agitation: 2 Paroxysmal Sweats: No Perspiration Orientation: 0-Oriented Tacttile Disturbances: 2-Mild Itch/Numbness/Burn Auditory Disturbances: 0-None Visual Disturbances: 2-Mild Sensitivity Headache: 0-None Present CIWA-Ar Total Score: 13 S Progress Note (SOAP) Subjective: Interrupted Sleep, Anxious, Tremors. Objective: PATIENT A & O X 3, OBSERVED AMBULATING ON UNIT. IN NO ACUTE DISTRESS. 05/19/18 15:46 Vital Signs Temperature 98.5 F 05/19/18 13:57 Pulse Rate 80 05/19/18 13:57 Respiratory Rate 20 05/19/18 13:57 Blood Pressure 133/81 05/19/18 13:57 O2 Sat by Pulse Oximetry (%) Laboratory Tests 05/19/18 05/19/18 05/19/18 05:50 05:50 05:50 WBC Cancelled Corrected WBC (auto) Cancelled RBC Cancelled Hgb Cancelled Hct Cancelled MCV Cancelled MCH Cancelled MCHC Cancelled RDW Cancelled Plt Count Cancelled MPV Cancelled Manual Slide Review Cancelled Platelet Comment Cancelled Sodium Cancelled Potassium Cancelled Chloride Cancelled Carbon Dioxide Cancelled Anion Gap Cancelled BUN Cancelled Creatinine Cancelled Creat Clearance w eGFR Cancelled Random Glucose Cancelled Calcium Cancelled Total Bilirubin Cancelled AST Cancelled ALT Cancelled Alkaline Phosphatase Cancelled Total Protein Cancelled Albumin Cancelled RPR Titer Cancelled 05/19/18 05/19/18 08:36 08:36 WBC 6.3 Corrected WBC (auto) RBC 3.75 L Hgb 11.5 L Hct 34.7 L MCV 92.4 MCH 30.8 MCHC 33.3 RDW 16.0 H Plt Count 261 MPV 9.3 Manual Slide Review Platelet Comment Sodium 141 Potassium 3.8 Chloride 103 Carbon Dioxide 28 Anion Gap 9 BUN 14 Creatinine 1.1 Creat Clearance w eGFR > 60 Random Glucose 121 H Calcium 9.2 Total Bilirubin 0.4 AST 48 H ALT 57 Alkaline Phosphatase 67 Total Protein 7.3 Albumin 4.5 RPR Titer LABS NOTED. RPR RESULT PENDING. 05/19/18 15:47 Assessment: 05/19/18 15:46 WITHDRAWAL SYMPTOMS. Plan: CONTINUE DETOX. PATIENT CURRENTLY RECEIVING DAILY MVI CONTAINING B VITAMINS AND IRON WHILE ADMITTED FOR DETOX.
[2018-05-19] MEDS: THIAMINE HCL 100 MG TABLET (FP) PO SCH (22:25)
[2018-05-19] MEDS: MELATONIN 5 MG TABLETS PO PRN (22:26)
[2018-05-19 22:32] LABS: URINE APPEARANCE CLEAR; URINE BILIRUBIN NEGATIVE (<2.0 mg/dL); URINE COLOR STRAW; URINE GLUCOSE (UA) NEGATIVE (NEGATIVE); URINE KETONE NEGATIVE (NEGATIVE); URINE LEUK ESTERASE NEGATIVE (NEGATIVE); URINE NITRITE NEGATIVE (NEGATIVE); URINE PROTEIN NEGATIVE (NEGATIVE); URINE UROBILINOGEN NEGATIVE mg/dL (0.2-1.0)
[2018-05-20] MEDS: chlordiazePOXIDE HCL 25 MG CAPSULE PO SCH ×2 (05:30→10:04)
[2018-05-20] MEDS ORDERED: BACITRACIN 0.9 GM PACKET TP PRN (10:04)
[2018-05-20] MEDS: PRENATAL VITAMINS W/ FOLIC ACID TABLET (FP) PO SCH (10:05)
--- NOTE | 2018-05-20 13:12 | PN ---
S CIWA - CIWA Score Nausea/Vomitin-No Nausea/No Vomiting Muscle Tremors: 3 Anxiety: 2 Agitation: 2 Paroxysmal Sweats: 1-Minimal Palms Moist Orientation: 0-Oriented Tacttile Disturbances: 0-None Auditory Disturbances: 0-None Visual Disturbances: 0-None Headache: 1-Very Mild CIWA-Ar Total Score: 9 [facility] Progress Note (SOAP) Subjective: tremor sweating able to sleep through the night last night Objective: 05/20/18 13:13 Vital Signs Temperature 98.5 F 05/20/18 09:37 Pulse Rate 68 05/20/18 09:37 Respiratory Rate 18 05/20/18 09:37 Blood Pressure 139/83 05/20/18 09:37 O2 Sat by Pulse Oximetry (%) Laboratory Last Values WBC 6.3 K/mm3 (4.0-10.0) 05/19/18 08:36 Corrected WBC (auto) Cancelled 05/19/18 05:50 RBC 3.75 M/mm3 (4.00-5.60) L 05/19/18 08:36 Hgb 11.5 GM/dL (11.7-16.9) L 05/19/18 08:36 Hct 34.7 % (35.4-49) L 05/19/18 08:36 MCV 92.4 fl (80-96) 05/19/18 08:36 MCH 30.8 pg (25.7-33.7) 05/19/18 08:36 MCHC 33.3 g/dl (32.0-35.9) 05/19/18 08:36 RDW 16.0 % (11.9-15.9) H 05/19/18 08:36 Plt Count 261 K/MM3 (134-434) 05/19/18 08:36 MPV 9.3 fl (7.5-11.1) 05/19/18 08:36 Manual Slide Review Cancelled 05/19/18 05:50 Platelet Comment Cancelled 05/19/18 05:50 Sodium 141 mmol/L (136-145) 05/19/18 08:36 Potassium 3.8 mmol/L (3.5-5.1) 05/19/18 08:36 Chloride 103 mmol/L (98-107) 05/19/18 08:36 Carbon Dioxide 28 mmol/L (21-32) 05/19/18 08:36 Anion Gap 9 MMOL/L (8-16) 05/19/18 08:36 BUN 14 mg/dL (7-18) 05/19/18 08:36 Creatinine 1.1 mg/dL (0.55-1.3) 05/19/18 08:36 Creat Clearance w eGFR > 60 (>60) 05/19/18 08:36 Random Glucose 121 mg/dL (74-106) H 05/19/18 08:36 Calcium 9.2 mg/dL (8.5-10.1) 05/19/18 08:36 Total Bilirubin 0.4 mg/dL (0.2-1) 05/19/18 08:36 AST 48 U/L (15-37) H 05/19/18 08:36 ALT 57 U/L (13-61) 05/19/18 08:36 Alkaline Phosphatase 67 U/L (45-117) 05/19/18 08:36 Total Protein 7.3 g/dl (6.4-8.2) 05/19/18 08:36 Albumin 4.5 g/dl (3.4-5.0) 05/19/18 08:36 Urine Color Straw 05/19/18 21:24 Urine Appearance Clear 05/19/18 21:24 Urine pH 8.0 (5.0-8.0) D 05/19/18 21:24 Ur Specific [place] 1.008 (1.010-1.035) L 05/19/18 21:24 Urine Protein Negative (NEGATIVE) 05/19/18 21:24 Urine Glucose (UA) Negative (NEGATIVE) 05/19/18 21:24 Urine Ketones Negative (NEGATIVE) 05/19/18 21:24 Urine Blood Negative (NEGATIVE) 05/19/18 21:24 Urine Nitrite Negative (NEGATIVE) 05/19/18 21:24 Urine Bilirubin Negative (<2.0 mg/dL) 05/19/18 21:24 Urine Urobilinogen Negative mg/dL (0.2-1.0) 05/19/18 21:24 Ur Leukocyte Esterase Negative (NEGATIVE) 05/19/18 21:24 RPR Titer Nonreactive (NONREACTIVE) 05/19/18 08:36 lab noted Assessment: 05/20/18 13:13 withdrawal sx Plan: continue detox
[2018-05-20] MEDS: CLOTRIMAZOLE 1% CREAM 15 GM TUBE TP SCH ×2 (16:04→22:18)
[2018-05-20] MEDS: chlordiazePOXIDE 5 MG CAPSULE PO SCH ×2 (17:23→22:19)
[2018-05-20] MEDS: THIAMINE HCL 100 MG TABLET (FP) PO SCH (22:18)
[2018-05-20] MEDS: MELATONIN 5 MG TABLETS PO PRN (22:19)
[2018-05-21] MEDS: chlordiazePOXIDE 5 MG CAPSULE PO SCH ×2 (05:28→10:12)
[2018-05-21] MEDS: CLOTRIMAZOLE 1% CREAM 15 GM TUBE TP SCH ×2 (09:51→22:33)
[2018-05-21] MEDS: PRENATAL VITAMINS W/ FOLIC ACID TABLET (FP) PO SCH (09:51)
--- NOTE | 2018-05-21 11:44 | PN ---
[facility] Progress Note (SOAP) Subjective: feeling better mild tremor less sweating discuss aftercare with staff social with peers in day room Objective: 05/21/18 11:43 Vital Signs Temperature 98.1 F 05/21/18 09:11 Pulse Rate 80 05/21/18 09:11 Respiratory Rate 18 05/21/18 09:11 Blood Pressure 131/81 05/21/18 09:11 O2 Sat by Pulse Oximetry (%) Laboratory Last Values WBC 6.3 K/mm3 (4.0-10.0) 05/19/18 08:36 Corrected WBC (auto) Cancelled 05/19/18 05:50 RBC 3.75 M/mm3 (4.00-5.60) L 05/19/18 08:36 Hgb 11.5 GM/dL (11.7-16.9) L 05/19/18 08:36 Hct 34.7 % (35.4-49) L 05/19/18 08:36 MCV 92.4 fl (80-96) 05/19/18 08:36 MCH 30.8 pg (25.7-33.7) 05/19/18 08:36 MCHC 33.3 g/dl (32.0-35.9) 05/19/18 08:36 RDW 16.0 % (11.9-15.9) H 05/19/18 08:36 Plt Count 261 K/MM3 (134-434) 05/19/18 08:36 MPV 9.3 fl (7.5-11.1) 05/19/18 08:36 Manual Slide Review Cancelled 05/19/18 05:50 Platelet Comment Cancelled 05/19/18 05:50 Sodium 141 mmol/L (136-145) 05/19/18 08:36 Potassium 3.8 mmol/L (3.5-5.1) 05/19/18 08:36 Chloride 103 mmol/L (98-107) 05/19/18 08:36 Carbon Dioxide 28 mmol/L (21-32) 05/19/18 08:36 Anion Gap 9 MMOL/L (8-16) 05/19/18 08:36 BUN 14 mg/dL (7-18) 05/19/18 08:36 Creatinine 1.1 mg/dL (0.55-1.3) 05/19/18 08:36 Creat Clearance w eGFR > 60 (>60) 05/19/18 08:36 Random Glucose 121 mg/dL (74-106) H 05/19/18 08:36 Calcium 9.2 mg/dL (8.5-10.1) 05/19/18 08:36 Total Bilirubin 0.4 mg/dL (0.2-1) 05/19/18 08:36 AST 48 U/L (15-37) H 05/19/18 08:36 ALT 57 U/L (13-61) 05/19/18 08:36 Alkaline Phosphatase 67 U/L (45-117) 05/19/18 08:36 Total Protein 7.3 g/dl (6.4-8.2) 05/19/18 08:36 Albumin 4.5 g/dl (3.4-5.0) 05/19/18 08:36 Urine Color Straw 05/19/18 21:24 Urine Appearance Clear 05/19/18 21:24 Urine pH 8.0 (5.0-8.0) D 05/19/18 21:24 Ur Specific [place] 1.008 (1.010-1.035) L 05/19/18 21:24 Urine Protein Negative (NEGATIVE) 05/19/18 21:24 Urine Glucose (UA) Negative (NEGATIVE) 05/19/18 21:24 Urine Ketones Negative (NEGATIVE) 05/19/18 21:24 Urine Blood Negative (NEGATIVE) 05/19/18 21:24 Urine Nitrite Negative (NEGATIVE) 05/19/18 21:24 Urine Bilirubin Negative (<2.0 mg/dL) 05/19/18 21:24 Urine Urobilinogen Negative mg/dL (0.2-1.0) 05/19/18 21:24 Ur Leukocyte Esterase Negative (NEGATIVE) 05/19/18 21:24 RPR Titer Nonreactive (NONREACTIVE) 05/19/18 08:36 lab noted Assessment: 05/21/18 11:44 withdrawal sx Plan: continue detox
[2018-05-21] MEDS: chlordiazePOXIDE HCL 10 MG CAPSULE PO SCH ×2 (17:09→22:34)
[2018-05-21] MEDS: THIAMINE HCL 100 MG TABLET (FP) PO SCH (22:33)
[2018-05-21] MEDS: MELATONIN 5 MG TABLETS PO PRN (22:34)
[2018-05-22] MEDS: chlordiazePOXIDE HCL 10 MG CAPSULE PO SCH (05:22)
[2018-05-22 06:13] VITALS: BP 130/75; PULSE 81; TEMP 98.9
--- NOTE | 2018-05-22 10:12 | DS ---
[facility] Detox Discharge Summary Admission Date: 05/18/18 Discharge Date: 05/22/18 - History Present History: Alcohol Dependence Additional Comments: 53 years old male admitted on 05/18/18 for alcohol withdrawal stabilization completed alcohol detox regimen [facility] Pertinent Past History: patient left the detox unit early today the show card writer has not assessed nor evaluated the patient - Physical Exam Results Vital Signs: Vital Signs Temperature 98.9 F 05/22/18 06:12 Pulse Rate 81 05/22/18 06:12 Respiratory Rate 18 05/22/18 06:12 Blood Pressure 130/75 05/22/18 06:12 O2 Sat by Pulse Oximetry (%) Pertinent Admission Physical Exam Findings: alcohol withdrawal sx Laboratory Last Values WBC 6.3 K/mm3 (4.0-10.0) 05/19/18 08:36 Corrected WBC (auto) Cancelled 05/19/18 05:50 RBC 3.75 M/mm3 (4.00-5.60) L 05/19/18 08:36 Hgb 11.5 GM/dL (11.7-16.9) L 05/19/18 08:36 Hct 34.7 % (35.4-49) L 05/19/18 08:36 MCV 92.4 fl (80-96) 05/19/18 08:36 MCH 30.8 pg (25.7-33.7) 05/19/18 08:36 MCHC 33.3 g/dl (32.0-35.9) 05/19/18 08:36 RDW 16.0 % (11.9-15.9) H 05/19/18 08:36 Plt Count 261 K/MM3 (134-434) 05/19/18 08:36 MPV 9.3 fl (7.5-11.1) 05/19/18 08:36 Manual Slide Review Cancelled 05/19/18 05:50 Platelet Comment Cancelled 05/19/18 05:50 Sodium 141 mmol/L (136-145) 05/19/18 08:36 Potassium 3.8 mmol/L (3.5-5.1) 05/19/18 08:36 Chloride 103 mmol/L (98-107) 05/19/18 08:36 Carbon Dioxide 28 mmol/L (21-32) 05/19/18 08:36 Anion Gap 9 MMOL/L (8-16) 05/19/18 08:36 BUN 14 mg/dL (7-18) 05/19/18 08:36 Creatinine 1.1 mg/dL (0.55-1.3) 05/19/18 08:36 Creat Clearance w eGFR > 60 (>60) 05/19/18 08:36 Random Glucose 121 mg/dL (74-106) H 05/19/18 08:36 Calcium 9.2 mg/dL (8.5-10.1) 05/19/18 08:36 Total Bilirubin 0.4 mg/dL (0.2-1) 05/19/18 08:36 AST 48 U/L (15-37) H 05/19/18 08:36 ALT 57 U/L (13-61) 05/19/18 08:36 Alkaline Phosphatase 67 U/L (45-117) 05/19/18 08:36 Total Protein 7.3 g/dl (6.4-8.2) 05/19/18 08:36 Albumin 4.5 g/dl (3.4-5.0) 05/19/18 08:36 Urine Color Straw 05/19/18 21:24 Urine Appearance Clear 05/19/18 21:24 Urine pH 8.0 (5.0-8.0) D 05/19/18 21:24 Ur Specific [place] 1.008 (1.010-1.035) L 05/19/18 21:24 Urine Protein Negative (NEGATIVE) 05/19/18 21:24 Urine Glucose (UA) Negative (NEGATIVE) 05/19/18 21:24 Urine Ketones Negative (NEGATIVE) 05/19/18 21:24 Urine Blood Negative (NEGATIVE) 05/19/18 21:24 Urine Nitrite Negative (NEGATIVE) 05/19/18 21:24 Urine Bilirubin Negative (<2.0 mg/dL) 05/19/18 21:24 Urine Urobilinogen Negative mg/dL (0.2-1.0) 05/19/18 21:24 Ur Leukocyte Esterase Negative (NEGATIVE) 05/19/18 21:24 RPR Titer Nonreactive (NONREACTIVE) 05/19/18 08:36 lab noted - Treatment Hospital Course: Detox Protocol Followed, Detoxed Safely, Responded well, Discharged Condition Good, Rehab Referral Accepted Patient has Accepted a Rehab Referral to: [facility] services - Medication Discharge Medications: Ambulatory Orders NK [No Known Home Medication] 12/27/16 - Diagnosis (1) Alcohol dependence with uncomplicated withdrawal Status: Acute (2) Nicotine dependence Status: Acute Qualifiers: Nicotine product type: cigarettes Substance use status: in withdrawal Qualified Code(s): F17.213 - Nicotine dependence, cigarettes, with withdrawal (3) ALCOHOL INDUCED MOOD DISORDER Status: Suspected (4) Positive PPD, treated Status: Resolved - AMA Did Patient Leave Against Medical Advice: No
== END 2018-05-22 07:00 | disposition home or self-care (01) | DRG 775 ==
LOC: YASAS 12:09 → Y3N 15:24
PROVIDERS: ADMIT Neuromusculoskeletal Medicine & OMM; ATTEND Neuromusculoskeletal Medicine & OMM
PROC: HZ2ZZZZ Detoxification Services for Substance Abuse Treatment (ICD-10-PCS; principal; 2018-05-18)
DX: F10.230 Alcohol dependence with withdrawal, uncomplicated (principal); F10.24 Alcohol dependence with alcohol-induced mood disorder; F17.213 Nicotine dependence, cigarettes, with withdrawal; R76.11 Nonspecific reaction to tuberculin skin test without active tuberculosis; M10.9 Gout, unspecified
CPT/HCPCS: 36415; 80053; 81003; 85027; 86593

== ENCOUNTER 2022-07-08 11:48 | Inpatient (IN) | payer OTHER ==
[2022-07-08 12:08] VITALS: BMI 21.9
[2022-07-08] MEDS ORDERED: IBUPROFEN 600 MG TABLET (FP) PO PRN (12:57)
[2022-07-08] MEDS ORDERED: BISMUTH SUBSALICYLATE 524 MG/30 ML PO PRN (12:57)
[2022-07-08] MEDS ORDERED: NALOXONE HCL (KLOXXADO) 8 MG SPRAY NS PRN (12:57)
[2022-07-08] MEDS ORDERED: BENZOCAINE/MENTHOL (CHLORASEPTIC ) LOZENGE MM PRN (12:57)
[2022-07-08] MEDS ORDERED: LOPERAMIDE HCL 2 MG CAPSULE PO PRN (12:57)
[2022-07-08] MEDS ORDERED: guaiFENesin 600 MG TABLET.ER (FP) PO PRN (12:57)
[2022-07-08] MEDS ORDERED: BENZONATATE 200 MG CAPSULE PO PRN (12:57)
[2022-07-08] MEDS ORDERED: NICOTINE 10 MG CARTRIDGE (INHALER) IH PRN (12:57)
[2022-07-08] MEDS ORDERED: ACETAMINOPHEN 325 MG TABLET (FP) PO PRN (12:57)
[2022-07-08] MEDS ORDERED: IBUPROFEN 400 MG TABLET (FP) PO PRN (12:57)
[2022-07-08] MEDS ORDERED: ONDANSETRON *ODT* 4 MG TABLET SL PRN (12:57)
[2022-07-08] MEDS ORDERED: MAG HYDROX/AL HYDROX/SIMETH 30 ML UNIT-DOSE CUP PO PRN (12:57)
[2022-07-08] MEDS ORDERED: NALOXONE HCL 0.4 MG/ML VIAL IM PRN (12:57)
[2022-07-08] MEDS ORDERED: DICYCLOMINE HCL 10 MG CAPSULE PO PRN (12:57)
[2022-07-08] MEDS ORDERED: MAGNESIUM HYDROX 2400MG/30ML ORAL SUSPENSION 30 ML CUP PO PRN (12:57)
[2022-07-08] MEDS ORDERED: POLYETHYLENE GLYCOL (HEALTHYLAX) 3350 17 GM PACKET PO PRN (12:57)
[2022-07-08 14:06] LABS: HEMATOCRIT 32.4 % (35.4-49); HEMOGLOBIN 10.9 GM/dL (11.7-16.9); MCHC 33.6 g/dl (32.0-35.9); MEAN CELL VOLUME 92.2 fl (80-96); MEAN PLT VOLUME 8.9 fl (7.5-11.1); PLATELET COUNT 309 10^3/uL (134-434); RBC 3.52 M/mm3 (4.00-5.60); RDW 16.4 % (11.9-15.9); WHITE BLOOD COUNT 4.5 K/mm3 (4.0-10.0)
[2022-07-08 14:12] LABS: CALCIUM 9.2 mg/dL (8.5-10.1)
[2022-07-08 14:16] LABS: BILIRUBIN,TOTAL 0.7 mg/dL (0.2-1); CREATININE 0.9 mg/dL (0.55-1.3); TOT PROT 7.1 g/dl (6.4-8.2)
[2022-07-08] MEDS: THIAMINE HCL 100 MG TABLET (FP) PO SCH (21:57)
[2022-07-08] MEDS: MELATONIN 5 MG TABLETS PO SCH (21:57)
[2022-07-08] MEDS: hydrOXYzine PAMOATE 25 MG CAPSULE (FP) PO PRN (23:09)
[2022-07-08] MEDS: METHOCARBAMOL 500 MG TABLET PO PRN (23:09)
[2022-07-09] MEDS: PRENATAL VITAMINS W/ FOLIC ACID TABLET (FP) PO SCH (10:31)
[2022-07-09] MEDS: METHOCARBAMOL 500 MG TABLET PO PRN (22:33)
[2022-07-09] MEDS: THIAMINE HCL 100 MG TABLET (FP) PO SCH (22:33)
[2022-07-09] MEDS: MELATONIN 5 MG TABLETS PO SCH (22:33)
[2022-07-09] MEDS: hydrOXYzine PAMOATE 25 MG CAPSULE (FP) PO PRN (22:34)
[2022-07-10] MEDS: PRENATAL VITAMINS W/ FOLIC ACID TABLET (FP) PO SCH (11:00)
[2022-07-10] MEDS ORDERED: amLODIPine BESYLATE 5 MG TABLET (FP) PO SCH (16:45)
[2022-07-10] MEDS: amLODIPine BESYLATE 5 MG TABLET (FP) PO SCH (18:08)
[2022-07-10] MEDS: THIAMINE HCL 100 MG TABLET (FP) PO SCH (22:25)
[2022-07-10] MEDS: hydrOXYzine PAMOATE 25 MG CAPSULE (FP) PO PRN (22:25)
[2022-07-10] MEDS: METHOCARBAMOL 500 MG TABLET PO PRN (22:25)
[2022-07-10] MEDS: MELATONIN 5 MG TABLETS PO SCH (22:25)
[2022-07-11 06:49] VITALS: PULSE 60; RESP 16
[2022-07-11 10:17] VITALS: BP 136/79; TEMP 97.7
[2022-07-11] MEDS: amLODIPine BESYLATE 5 MG TABLET (FP) PO SCH (10:25)
[2022-07-11] MEDS: PRENATAL VITAMINS W/ FOLIC ACID TABLET (FP) PO SCH (10:25)
== END 2022-07-11 10:27 | disposition home or self-care (01) | DRG 775 ==
LOC: YASAS 11:48 → Y3N 14:10
PROVIDERS: ADMIT Allergy & Immunology; ATTEND Surgery
PROC: HZ2ZZZZ Detoxification Services for Substance Abuse Treatment (ICD-10-PCS; principal; 2022-07-08)
DX: F10.230 Alcohol dependence with withdrawal, uncomplicated (principal); F17.210 Nicotine dependence, cigarettes, uncomplicated; D64.9 Anemia, unspecified; R73.9 Hyperglycemia, unspecified
CPT/HCPCS: 36415; 80053; 82140; 82947; 83036; 85027; 86780; 87811; 93005; 93010; C9803-CS; U0003; U0005